=== PATIENT | female | born 1960 | race American Indian/Alaskan Native ===

== ENCOUNTER 2016-09-29 12:06 | Inpatient (IN) | payer MEDICARE ==
[2016-09-29] MEDS ORDERED: HEPARIN 10,000 UNITS/10 ML IV ONE (13:09)
[2016-09-29] MEDS ORDERED: NACL 0.9% 250ML 250 ML IV ONE (13:10)
--- NOTE | 2016-09-29 13:11 | Emergency Department Report ---
ED Shortness of Breath HPI - General Chief Complaint: Dyspnea/Respdistress Stated Complaint: SOB Time Seen by Provider: 09/29/16 13:01 Source: patient, family, RN notes reviewed, old records reviewed Mode of arrival: Wheelchair Limitations: Other (patient is a very poor historian) - History of Present Illness Initial Comments: This is a 56-year-old female. She is previously unknown to me. Her primary care doctor is Dr. Osito Perales. Orthopedic doctors Dr. Conor Fuller. Patient had a left total knee replacement performed on 09/19/2016, at [facility]. Patient reports that she was hospitalized last year for multiple pulmonary emboli. She reports that she was discharged with instructions for Lovenox. Patient reports that she has been poorly compliant with Lovenox therapy. She is sent to the ER for evaluation for possible pulmonary embolus. As per enclosed documentation from her primary care doctor, patient having shortness of breath, with hypoxia, documented O2 sat of 78% as per her enclosed paperwork. The patient complains of shortness of breath. It is constant. It worsens with physical exertion. It decreases with rest. There is no hematemesis. There is no department blood per rectum. There is mild chest tightness. This has been going on for the past few days. Symptoms are constant. Worse with physical exertion. They decrease with rest. case was presented to Dr Millan, the [facility], who accepts the patient to his service MD Complaint: shortness of breath -: Gradual Severity: moderate Consistency: constant Improves With: oxygen, rest Worsens With: lying flat, exertion Known History Of: other Associated Symptoms: chest pain, orhopnia Treatments Prior to Arrival: none - Related Data Home Oxygen Therapy: No Home Medications Medication Instructions Recorded Confirmed Last Taken Meloxicam [Meloxicam] 15 mg PO QDAY 09/04/13 09/29/16 09/28/16 Fluticasone [Flonase] 1 spray NS QDAY 08/12/14 09/29/16 09/10/14 1 Esomeprazole Magnesium [NexIUM] 40 mg PO QDAY 09/29/16 09/29/16 09/28/16 Fluticasone [Flonase] 1 spray NS QDAY 09/29/16 09/29/16 09/28/16 Gabapentin [Neurontin] 800 mg PO Q8H 09/29/16 09/29/16 09/28/16 Lacosamide [Vimpat] 100 mg PO Q12HR 09/29/16 09/29/16 09/28/16 Levocetirizine Dihydrochloride 5 mg PO DAILY 09/29/16 09/29/16 09/28/16 [Xyzal] Paroxetine HCl [Paxil] 30 mg PO DAILY 09/29/16 09/29/16 09/28/16 Quetiapine Fumarate [SEROquel XR] 600 mg PO QHS 09/29/16 09/29/16 09/28/16 Simvastatin [Zocor TAB] 20 mg PO QHS 09/29/16 09/29/16 09/28/16 Tolterodine Tartrate [Tolterodine 4 mg PO DAILY 09/29/16 09/29/16 09/28/16 Tartrate ER] oxyCODONE /ACETAMINOPHEN [Percocet 1 tab PO Q6HR PRN 09/29/16 09/29/16 09/28/16 5/325] valACYclovir [Valtrex] 500 mg PO DAILY 09/29/16 09/29/16 09/28/16 Allergies Allergy/AdvReac Type Severity Reaction Status Date / Time ibuprofen Allergy Nausea Verified 09/29/16 12:14 metronidazole [From Flagyl] Allergy Nausea Verified 09/29/16 12:14 sulfamethoxazole Allergy Nausea Verified 09/29/16 12:14 [From Bactrim] trimethoprim [From Bactrim] Allergy Nausea Verified 09/29/16 12:14 vancomycin Allergy Itching Verified 09/29/16 12:14 ED Review of Systems ROS: Stated complaint: SOB Other details as noted in HPI Constitutional: weakness. denies: fever, malaise Eyes: denies: vision change ENT: denies: epistaxis Respiratory: shortness of breath Cardiovascular: chest pain Gastrointestinal: denies: abdominal pain, hematemesis, melena, hematochezia Genitourinary: as per HPI Musculoskeletal: arthralgia, myalgia, other (patient has chronic pain to her left lower extremity surgical site) Neurological: weakness ED Past Medical Hx - Past Medical History Previous Medical History?: Yes Hx Hypertension: Yes Hx Diabetes: No Hx GERD: Yes Hx Arthritis: Yes Hx Headaches / Migraines: Yes - Surgical History Past Surgical History?: No - Social History Smoking Status: Current Every Day Smoker Substance Use Type: Alcohol - Medications Home Medications: Home Medications Medication Instructions Recorded Confirmed Last Taken Type Meloxicam [Meloxicam] 15 mg PO QDAY 09/04/13 09/29/16 09/28/16 History Fluticasone [Flonase] 1 spray NS QDAY 08/12/14 09/29/16 09/10/14 History 1 Esomeprazole Magnesium [NexIUM] 40 mg PO QDAY 09/29/16 09/29/16 09/28/16 History Fluticasone [Flonase] 1 spray NS QDAY 09/29/16 09/29/16 09/28/16 History Gabapentin [Neurontin] 800 mg PO Q8H 09/29/16 09/29/16 09/28/16 History Lacosamide [Vimpat] 100 mg PO Q12HR 09/29/16 09/29/16 09/28/16 History Levocetirizine Dihydrochloride 5 mg PO DAILY 09/29/16 09/29/16 09/28/16 History [Xyzal] Paroxetine HCl [Paxil] 30 mg PO DAILY 09/29/16 09/29/16 09/28/16 History Quetiapine Fumarate [SEROquel XR] 600 mg PO QHS 09/29/16 09/29/16 09/28/16 History Simvastatin [Zocor TAB] 20 mg PO QHS 09/29/16 09/29/16 09/28/16 History Tolterodine Tartrate [Tolterodine 4 mg PO DAILY 09/29/16 09/29/16 09/28/16 History Tartrate ER] oxyCODONE /ACETAMINOPHEN [Percocet 1 tab PO Q6HR PRN 09/29/16 09/29/16 09/28/16 History 5/325] valACYclovir [Valtrex] 500 mg PO DAILY 09/29/16 09/29/16 09/28/16 History ED Physical Exam - General Limitations: No Limitations General appearance: alert, in no apparent distress - Head Head exam: Present: atraumatic, normocephalic - Eye Eye exam: Present: normal appearance, EOMI. Absent: nystagmus - ENT ENT exam: Present: normal exam, normal orophraynx, mucous membranes moist, normal external ear exam - Neck Neck exam: Present: normal inspection, full ROM. Absent: tenderness, meningismus - Respiratory Respiratory exam: Present: normal lung sounds bilaterally. Absent: respiratory distress, wheezes, rales, rhonchi, stridor, chest wall tenderness - Cardiovascular Cardiovascular Exam: Present: normal rhythm, tachycardia, normal heart sounds. Absent: systolic murmur, diastolic murmur, rubs, gallop - GI/Abdominal GI/Abdominal exam: Present: soft, normal bowel sounds. Absent: distended, tenderness, guarding, rebound, rigid, pulsatile mass - Extremities Exam Extremities exam: Present: normal inspection, normal capillary refill, other ( left lower extremity has a bandage over the surgical site. There is no obvious redness, pus, streaking or swelling). Absent: pedal edema, joint swelling - Back Exam Back exam: Present: normal inspection, full ROM. Absent: tenderness, CVA tenderness (R), CVA tenderness (L), muscle spasm, paraspinal tenderness, vertebral tenderness - Neurological Exam Neurological exam: Present: alert, oriented X3, other (Extraocular movements intact. Tongue midline. No facial droop. Facial sensation intact to light touch in the V1, V2, V3 distribution bilaterally. 5 and 5 strength in 4 extremities.. Sensation is intact to light touch in 4 extremities.). Absent: motor sensory deficit - Psychiatric Psychiatric exam: Present: normal affect, normal mood - Skin Skin exam: Present: warm, dry, intact, normal color. Absent: rash ED Course Vital Signs 09/29/16 09/29/16 09/29/16 12:14 12:30 13:16 Temperature 98.9 F Pulse Rate 99 H Respiratory 14 18 Rate Blood Pressure 115/89 O2 Sat by Pulse 97 98 99 Oximetry 09/29/16 09/29/16 09/29/16 14:05 14:54 15:00 Temperature Pulse Rate 104 H 101 H Respiratory 18 16 20 Rate Blood Pressure 128/90 O2 Sat by Pulse 100 96 Oximetry - Reevaluation(s) Reevaluation #1: 09/29/16 15:27 CAT scan shows large pulmonary embolus. Vascular surgery paged. Discussed the case with physician sales and marketing assistant Noam Hernandez He requests that heparin be held at this time, pending possible catheter directed lysis. Reevaluation #2: 09/29/16 15:34 d/w Dr VILLATORO, who agrees with triage to icu d/w Gigi Hernandez on vascular surgery they recommend that heparin drip be initiated, and that heparin bolus be withheld. ED Medical Decision Making - Lab Data Result diagrams: 09/29/16 13:21 09/29/16 13:21 Vital Signs 09/29/16 09/29/16 12:14 13:16 Temperature 98.9 F Pulse Rate 99 H Respiratory 14 Rate Blood Pressure 115/89 O2 Sat by Pulse 97 99 Oximetry Lab Results 09/29/16 09/29/16 09/29/16 Range/Units 13:21 13:21 13:21 WBC 7.9 (4.5-11.0) K/mm3 RBC 3.74 (3.65-5.03) M/mm3 Hgb 10.3 (10.1-14.3) gm/dl Hct 32.7 (30.3-42.9) % MCV 88 (79-97) fl MCH 28 (28-32) pg MCHC 31 (30-34) % RDW 16.8 H (13.2-15.2) % Plt Count 272 (140-440) K/mm3 Lymph % (Auto) 43.0 H (13.4-35.0) % Kimble % (Auto) 5.5 (0.0-7.3) % Eos % (Auto) 1.2 (0.0-4.3) % Baso % (Auto) 0.6 (0.0-1.8) % Lymph # 3.4 (1.2-5.4) K/mm3 Kimble # 0.4 (0.0-0.8) K/mm3 Eos # 0.1 (0.0-0.4) K/mm3 Baso # 0.0 (0.0-0.1) K/mm3 Seg Neutrophils % 49.7 (40.0-70.0) % Seg Neutrophils # 3.9 (1.8-7.7) K/mm3 PT 14.6 (12.2-14.9) Sec. INR 1.15 H (0.87-1.13) APTT 40.9 H (24.2-36.6) Sec. POC ABG pH (7.35-7.45) POC ABG pCO2 (35-45) POC ABG pO2 (80-105) POC ABG HCO3 POC ABG Total CO2 POC ABG O2 Sat POC ABG Base Excess FiO2 % Sodium 145 (137-145) mmol/L Potassium 3.8 (3.6-5.0) mmol/L Chloride 110.2 H (98-107) mmol/L Carbon Dioxide 18 L (22-30) mmol/L Anion Gap 21 mmol/L BUN 11 (7-17) mg/dL Creatinine 0.8 (0.7-1.2) mg/dL Estimated GFR > 60 ml/min BUN/Creatinine Ratio 13.75 % Glucose 97 (65-100) mg/dL Calcium 8.8 (8.4-10.2) mg/dL Troponin T 0.036 H (0.00-0.029) ng/mL NT-Pro-B Natriuret Pep (0-900) pg/mL 09/29/16 09/29/16 Range/Units 13:21 13:24 WBC (4.5-11.0) K/mm3 RBC (3.65-5.03) M/mm3 Hgb (10.1-14.3) gm/dl Hct (30.3-42.9) % MCV (79-97) fl MCH (28-32) pg MCHC (30-34) % RDW (13.2-15.2) % Plt Count (140-440) K/mm3 Lymph % (Auto) (13.4-35.0) % Kimble % (Auto) (0.0-7.3) % Eos % (Auto) (0.0-4.3) % Baso % (Auto) (0.0-1.8) % Lymph # (1.2-5.4) K/mm3 Kimble # (0.0-0.8) K/mm3 Eos # (0.0-0.4) K/mm3 Baso # (0.0-0.1) K/mm3 Seg Neutrophils % (40.0-70.0) % Seg Neutrophils # (1.8-7.7) K/mm3 PT (12.2-14.9) Sec. INR (0.87-1.13) APTT (24.2-36.6) Sec. POC ABG pH 7.391 (7.35-7.45) POC ABG pCO2 25.4 L (35-45) POC ABG pO2 71 L (80-105) POC ABG HCO3 15.4 POC ABG Total CO2 16 POC ABG O2 Sat 94 POC ABG Base Excess -9 FiO2 21 % Sodium (137-145) mmol/L Potassium (3.6-5.0) mmol/L Chloride (98-107) mmol/L Carbon Dioxide (22-30) mmol/L Anion Gap mmol/L BUN (7-17) mg/dL Creatinine (0.7-1.2) mg/dL Estimated GFR ml/min BUN/Creatinine Ratio % Glucose (65-100) mg/dL Calcium (8.4-10.2) mg/dL Troponin T (0.00-0.029) ng/mL NT-Pro-B Natriuret Pep 4085 H (0-900) pg/mL - EKG Data -: EKG Interpreted by Me Rate: tachycardia - EKG Data 09/29/16 14:44 Sinus tachycardia, 102 beats per minute, incomplete right bundle branch block, abnormal EKG, motion artifact, not morphologically consistent with stemi - Radiology Data Radiology results: pending, report reviewed, image reviewed X-ray the chest is negative. - Medical Decision Making Differential diagnosis: Pneumonia, pulmonary embolus, acute coronary syndrome Assessment and plan: 56-year-old female with shortness of breath and mild chest tightness. She is tachycardic, and her ABG demonstrates hypoxemia, with decreased PaCO2, consistent with noted physical examination tachypnea, and decreased bicarbonate, suggestive of metabolic compensation. High risk by well' s criteria, artery on heparin. Elevated troponin, incomplete right bundle branch block and proBNP noted, suggestive of some massive pulmonary embolus. CT scan of the chest is pending. Patient will require admission. Critical Care Time: Yes Critical care time in (mins) excluding proc time.: 60 Critical care attestation.: If time is entered above; I have spent that time in minutes in the direct care of this critically ill patient, excluding procedure time. Critical Care Time: Critical care time includes multiple bedside evaluations, interpretation of laboratory studies, radiology studies, time spent managing a patient with shortness of breath, elevated troponin, high suspicion for pulmonary embolus, requiring CT scan, initiation of heparin drip, consultation with hospital medicine. This does not include procedure time. ED Disposition Clinical Impression: Dyspnea, Hypoxemia, Elevated troponin Disposition: DC-09 OP ADMIT IP TO THIS HOSP Is pt being admited?: Yes Condition: Good Referrals: PRIMARY CARE, [Primary Care Provider] - 3-5 Days
--- NOTE | 2016-09-29 13:17 | XRay Report ---
Chest 2 views: History: Shortness of breath. Findings: Normal cardiomediastinal silhouette. Trachea is midline. No consolidation, pneumothorax or pleural effusion. Impression: No acute cardiopulmonary findings.
[2016-09-29 13:47] LABS: Basophils % (Auto) 0.6 % (0.0-1.8); Eosinophils % (Auto) 1.2 % (0.0-4.3); Hematocrit 32.7 % (30.3-42.9); Hemoglobin 10.3 gm/dl (10.1-14.3); INR 1.15 (0.87-1.13); Mean Corpuscular HGB Conc 31 % (30-34); Mean Corpuscular Hemoglobin 28 pg (28-32); Mean Corpuscular Volume 88 fl (79-97); Partial Thromboplastin Time 40.9 Sec. (24.2-36.6); Platelet Count 272 K/mm3 (140-440); Red Blood Count 3.74 M/mm3 (3.65-5.03); Red Cell Distribution Width 16.8 % (13.2-15.2); White Blood Count 7.9 K/mm3 (4.5-11.0)
[2016-09-29 13:50] LABS: ISTAT Base Excess -9; ISTAT DEVICE 0; ISTAT HCO3 15.4; ISTAT PCO2 25.4 (35-45); ISTAT PH 7.391 (7.35-7.45); ISTAT PO2 71 (80-105); ISTAT SO2 94; ISTAT TCO2 16
[2016-09-29 13:52] LABS: Anion Gap 21 mmol/L; BUN/Creatinine Ratio 13.75; Blood Urea Nitrogen 11 mg/dL (7-17); Calcium 8.8 mg/dL (8.4-10.2); Carbon Dioxide 18 mmol/L (22-30); Chloride 110.2 mmol/L (98-107); Glucose 97 mg/dL (65-100); Potassium 3.8 mmol/L (3.6-5.0); Sodium 145 mmol/L (137-145)
[2016-09-29] MEDS ORDERED: HEPARIN/ 0.45% NACL-25,000 UNIT/500 ML 25,000 UNIT/500 ML BAG IV SCH (14:00)
[2016-09-29] MEDS ORDERED: SUBLIMAZE IV ONE (14:00)
[2016-09-29] MEDS ORDERED: SUBLIMAZE ONE (14:00)
[2016-09-29] MEDS ORDERED: NACL ONE (14:37)
--- NOTE | 2016-09-29 14:54 | Admit Criteria Form ---
Admission Criteria Documentation: PULMONARY DISEASE GRG Clinical Indications for Admission to Inpatient Care ( Place 'X' for any and all applicable criteria): Hospital admission is needed for appropriate care of the patient because of ANY ONE of the following(1): [ ]I. Impending or actual respiratory arrest ( Use Respiratory Failure Criteria for severe respiratory disease and long-term mechanical ventilation patients) (4) [ ]II. Severe airflow or ventilation abnormalities (not responsive to emergency and observation care treatment as appropriate) as indicated by ANY ONE of the following(5)(6)(7)(8) : [ ]a) PCO2 > 42 mm Hg (5.6 kPa) and pH < 7.35 (new) [ ]b) Documented PCO2 increase > 5 mm Hg (0.7 kPa) from disease baseline [ ]c) Airflow measurements[A] < 60% of previous best or predicted ( e.g., PEF <300 L/minute) despite intensive emergent treatment[B] [ ]d) Required respiratory treatments that are performable only in acute inpatient setting [X]III. Severe respiratory findings (not responsive to emergency and observation care treatment as appropriate) including ANY ONE of the following(5)(8)(9): [X]a) Respiratory distress as indicated by ALL of the following(5)(10): [ ]i) Patient with ANY ONE of the following: [X]1) Dyspnea (difficulty breathing) [ ]2) Abnormal breathing pattern (eg, chest retractions) [ ]3) Tachypnea [ ]4) Other evidence of difficulty breathing [X]ii) Evidence of respiratory compromise indicated by ANY ONE of the following: [X]1) Hypoxemia [ ]2) Altered mental status [ ]3) Other evidence of respiratory compromise (eg, pulmonary edema on chest x-ray) [ ]b) Stridor [ ]c) Gross hemoptysis(11) [ ]d) Acute cyanosis [ ]IV. High-risk pulmonary infection as indicated by ANY ONE of the following( 19)(20)(21)(22): [ ]a) Temperature less than 95 degrees F(35 degrees C) or greater than 103.1 degrees F(39.5 degrees C) [ ]b) Hemodynamic instability that remains after emergency or observation level care (as appropriate) [ ]c) Immunocompromised patient (eg, AIDS, post transplant, neutropenic) [ ]d) History of severe COPD [ ]e) History of severely symptomatic congestive heart failure [ ]f) Other high-risk comorbidity (eg, poorly controlled diabetes, cirrhosis, chronic renal insufficiency) [ ]g) Hypoxemia (new) [ ]h) Outpatient, observation, or recovery facility therapy has failed, is not appropriate, or is not feasible [ ]V. Severe atelectasis or lung collapse(15)(16) [ ]. Tuberculosis requiring inpatient treatment as indicated by ANY ONE of the following(17)(18): [ ]a) New positive acid-fast bacilli sputum smear [ ]b) Positive acid-fast bacilli smear (under current treatment), with ANY ONE of the following: [ ]i) Unexposed household contacts [ ]ii) Infants or immunosuppressed household contacts [ ]iii) Patient unable or unwilling to avoid exposing others [ ]iv) Severe immunocompromised patient (eg, AIDS, post transplant, neutropenic) [ ]VII. Empyema or lung abscess(13)(14) [ ]VIII. Severe pulmonary arterial hypertension or pulmonary vascular disease requiring inpatient care indicated by ANY ONE of the following(24)(25): [ ]a) Initiation or change of vasodilators (IV, subcutaneous, or inhaled) or other vasoactive medications needed [ ]b) IV anticoagulation needed (eg, immediate anticoagulation necessary, alternatives not appropriate) [ ]c) Arterial or pulmonary artery catheter monitoring needed due to infusion or other treatment [ ]IX. Chronic lung disease with severe deterioration (not responsive to emergency and observation care treatment as appropriate) as indicated by ANY ONE of the following (6)(12): [ ]a) SaO2 5% below baseline in patient with chronic hypoxemia [ ]b) New requirement for supplemental oxygen to keep SaO2 at baseline or acceptable level [ ]c) Required supplemental oxygen performable only in acute inpatient setting [ ]d) Severe airflow or ventilation abnormalities [ ]e) Rapid rate of exacerbation onset [ ]f) Previously mobile patient unable to walk between rooms [ ]g) Inability to eat or sleep due to dyspnea [ ]h) Altered mental status [ ]X. Cystic fibrosis with severe deterioration as indicated by ANY ONE of the following(26)(27): [ ]a) Severe exacerbation that does not respond to intensified home therapy [ ]b) Pneumonia [ ]c) Hemoptysis [ ]d) Atelectasis [ ]e) Pneumothorax [ ]f) Respiratory failure [ ]g) Severe exacerbation with patient unable to perform prescribed treatments at home [ ]XI. Severe right heart failure as indicated by ANY ONE of the following(24) (25): [ ]a) Increasing organ failure (eg, liver congestion with significant and worsening or new elevation of transaminases) [ ]b) Anasarca [ ]c) Angina that requires inpatient care (eg, not treatable in emergency or observation level of care) [ ]d) Respiratory distress [ ]e) Syncope [ ]f) SBP < 90 mm Hg (new) [ ]XII. Injury requiring inpatient care (medical) as indicated by ANY ONE of the following(28): [ ]a) Significant inhalation injury (eg, smoke inhalation, other toxic inhalation) (29)(30)(31) [ ]b) Airway obstruction that remains or is unstable after emergency or observation level care(32) [ ]c) Severe pain requiring acute inpatient management [ ]d) Lung contusion [ ]e) Bronchial tree injury [ ]f) Air or fat emboli(33) [ ]g) Other injury not treatable in emergency or observation level care (eg, hemothorax) (34) [ ]XIII. Pulmonary hemorrhage or significant hemoptysis(11)(35)(36) [ ]XIV. Inpatient palliative care needed[C](37)(38)(39)(40) [ ]XV. Complications of lung transplant (eg, rejection, failure, respiratory infection) (23) [ ]XVI. Pulmonary Disease and ANY ONE of the following: [ ]a) General Admission Criteria [ ]b) Pediatric General Admission Criteria The original [email or web address] content created by [facility] has been revised. The portions of the content which have been revised are identified through the use of italic text or in bold, and [facility] has neither reviewed nor approved the modified material. All other unmodified content is copyright [facility]. Please see references footnoted in the original [facility] edition 2016
--- NOTE | 2016-09-29 15:25 | Cat Scan Report ---
CTA chest: History: Shortness of breath. Rule out PE. Findings: No evidence of aortic aneurysm. Multiple filling defects identified at the right and left main pulmonary artery and middle and lower lobe branches bilaterally. Saddle thrombus pulmonary artery. No pleural or pericardial effusion. Bilateral lower lobe infiltrates. No definite evidence of infarction. Impression: Pulmonary thromboembolism as described. Bilateral lower lobe infiltrates. Dr. Sanchez was informed of the findings at 3:18 PM on 09/29/16. Zhang.
[2016-09-29 15:33] LABS: Cholesterol 179 mg/dL (50-199); HDL Cholesterol 49 mg/dL (40-59); LDL Cholesterol,Direct 94 mg/dL (50-130); Triglycerides 182 mg/dL (2-149)
[2016-09-29] MEDS ORDERED: HEPARIN ONE (15:33)
[2016-09-29] MEDS ORDERED: HEPARIN 10,000 UNITS/10 ML ONE ×2 (15:34→17:31)
[2016-09-29] MEDS ORDERED: DUONEB 0.5 MG-3 MG/3 ML SOLN IH PRN (16:35)
[2016-09-29] MEDS ORDERED: DULCOLAX PR PRN (16:35)
[2016-09-29] MEDS ORDERED: MILK OF MAGNESIA PO PRN (16:35)
[2016-09-29] MEDS ORDERED: ALUM-MAG HYDROX-SIMETH 200-200-20MG/5ML PO PRN (16:35)
--- NOTE | 2016-09-29 16:35 | History and Physical Report ---
History of Present Illness Chief complaint: I cant breathe History of present illness: 56 YO Female with HTN, Obesity, GERD, Nicotine Dependence, Migraine RIVERO, DVT/PT Noncompliant with anticoagulation presents to ED for evaluation. Pt states that she has experienced shortness of breath for the past 5 days, with worsening symptoms over the past 3 days. Pt seen and evaluated by PCP and found to have hyposemia with Sao2 of 78/% on room air. Pt instructed to proceed directly to [facility] for evaluation. Pt seen and evaluated in ED and found to be hypoxemic and placed on supplemental oxygen, CTA chest revealed bilateral PE with evidence of RV strain. IR consulted for lytic therpay, and pt admitted to ICU. Pt denies fever, chills, CP, palpitations, hemoptysis, syncope, RIVERO, skin rashes, or recent ill contacts. Past History Past Medical History: DVT, GERD, hypertension, pulmonary embolism Past Surgical History: total knee replacement, Other Social history: single, smoking. denies: alcohol abuse, prescription drug abuse , IV drug use Family history: diabetes, hypertension Medications and Allergies Allergies Allergy/AdvReac Type Severity Reaction Status Date / Time ibuprofen Allergy Nausea Verified 09/29/16 12:14 metronidazole [From Flagyl] Allergy Nausea Verified 09/29/16 12:14 sulfamethoxazole Allergy Nausea Verified 09/29/16 12:14 [From Bactrim] trimethoprim [From Bactrim] Allergy Nausea Verified 09/29/16 12:14 vancomycin Allergy Itching Verified 09/29/16 12:14 Home Medications Medication Instructions Recorded Confirmed Last Taken Type Meloxicam [Meloxicam] 15 mg PO QDAY 09/04/13 09/29/16 09/28/16 History Fluticasone [Flonase] 1 spray NS QDAY 08/12/14 09/29/16 09/10/14 History 1 Esomeprazole Magnesium [NexIUM] 40 mg PO QDAY 09/29/16 09/29/16 09/28/16 History Fluticasone [Flonase] 1 spray NS QDAY 09/29/16 09/29/16 09/28/16 History Gabapentin [Neurontin] 800 mg PO Q8H 09/29/16 09/29/16 09/28/16 History Lacosamide [Vimpat] 100 mg PO Q12HR 09/29/16 09/29/16 09/28/16 History Levocetirizine Dihydrochloride 5 mg PO DAILY 09/29/16 09/29/16 09/28/16 History [Xyzal] Paroxetine HCl [Paxil] 30 mg PO DAILY 09/29/16 09/29/16 09/28/16 History Quetiapine Fumarate [SEROquel XR] 600 mg PO QHS 09/29/16 09/29/16 09/28/16 History Simvastatin [Zocor TAB] 20 mg PO QHS 09/29/16 09/29/16 09/28/16 History Tolterodine Tartrate [Tolterodine 4 mg PO DAILY 09/29/16 09/29/16 09/28/16 History Tartrate ER] oxyCODONE /ACETAMINOPHEN [Percocet 1 tab PO Q6HR PRN 09/29/16 09/29/16 09/28/16 History 5/325] valACYclovir [Valtrex] 500 mg PO DAILY 09/29/16 09/29/16 09/28/16 History Active Meds: Active Medications Heparin Sodium/Sodium Chloride (Heparin/ 0.45% Nacl-25,000 Unit/500 Ml) 25,000 unit in 500 mls @ 23 mls/hr IV TITR ZOHAIB; 1,150 UNITS/HR PRN Reason: Protocol Last Admin: 09/29/16 15:50 Dose: 1,150 units/hr, 23 mls/hr Review of Systems All systems: negative Cardiovascular: shortness of breath Exam - Constitutional Vitals: Temp Pulse Resp BP Pulse Ox 98.9 F 101 H 20 128/90 96 09/29/16 12:14 09/29/16 15:00 09/29/16 15:00 09/29/16 15:00 09/29/16 15:00 General appearance: Present: mild distress, obese - EENT Eyes: Present: PERRL ENT: hearing intact, clear oral mucosa - Neck Neck: Present: supple, normal ROM - Respiratory Respiratory effort: labored, pursed lips, accessory muscle use Respiratory: bilateral: diminished, rhonchi - Cardiovascular Rhythm: regular Heart Sounds: Present: S1 & S2 - Extremities Extremities: pulses symmetrical, No edema - Abdominal General gastrointestinal: Present: soft, non-tender, non-distended, normal bowel sounds Female genitourinary: Present: normal - Integumentary Integumentary: Present: clear, warm, dry - Musculoskeletal Musculoskeletal: generalized weakness - Psychiatric Psychiatric: appropriate mood/affect - Neurologic Neurologic: CNII-XII intact, moves all extremities Results - Labs CBC & Chem 7: 09/30/16 09:48 09/30/16 04:37 Labs: Abnormal lab results 09/29/16 09/29/16 09/29/16 Range/Units 13:21 13:21 13:21 RDW 16.8 H (13.2-15.2) % Lymph % (Auto) 43.0 H (13.4-35.0) % INR 1.15 H (0.87-1.13) APTT 40.9 H (24.2-36.6) Sec. POC ABG pCO2 (35-45) POC ABG pO2 (80-105) Chloride 110.2 H (98-107) mmol/L Carbon Dioxide 18 L (22-30) mmol/L Troponin T 0.036 H (0.00-0.029) ng/mL NT-Pro-B Natriuret Pep (0-900) pg/mL Triglycerides 182 H (2-149) mg/dL 09/29/16 09/29/16 Range/Units 13:21 13:24 RDW (13.2-15.2) % Lymph % (Auto) (13.4-35.0) % INR (0.87-1.13) APTT (24.2-36.6) Sec. POC ABG pCO2 25.4 L (35-45) POC ABG pO2 71 L (80-105) Chloride (98-107) mmol/L Carbon Dioxide (22-30) mmol/L Troponin T (0.00-0.029) ng/mL NT-Pro-B Natriuret Pep 4085 H (0-900) pg/mL Triglycerides (2-149) mg/dL Assessment and Plan - Patient Problems (1) Acute respiratory failure Current Visit: Yes Status: Acute Qualifiers: Respiratory failure complication: R Plan to address problem: Supplemental oxygen, nebs, aspiration precautions, NIPPV, pulmonary consulted. (2) Bilateral pulmonary embolism Current Visit: Yes Status: Acute Plan to address problem: IR consulted, for lytic therapy. (3) Accelerated hypertension Current Visit: Yes Status: Acute Plan to address problem: monitor bp q shift, continue current therapy (4) DVT prophylaxis Current Visit: Yes Status: Acute
[2016-09-29] MEDS ORDERED: PERCOCET 5/325 PO PRN (16:46)
[2016-09-29] MEDS ORDERED: NON-FORMULARY (Gabapentin [Neurontin] 800 MG) PO SCH (17:00)
[2016-09-29] MEDS ORDERED: MORPHINE IV PRN (17:14)
[2016-09-29] MEDS ORDERED: ZOFRAN IV PRN (17:14)
--- NOTE | 2016-09-29 17:19 | Consultation ---
History of Present Illness - Reason for Consult Consult date: 09/29/16 Submassive PE - History of Present Illness 56-year-old female with a left total knee replacement performed on 09/19/2016, at [facility] who is hospitalized in 06/2014 for submassive pulmonary emboli who was then anticoagulated for one year, but never became chronically short of breath with exertion after walking 50-100 feet who one year ago and to smoke and subsequently had a walking distance of 50 feet. 3 days ago, she could only walk about 3 feet before becoming severely short of breath. Patient was discharged on prophylactic Lovenox for 1 week, but missed a few of her shots. She was found by her primary care doctor to have shortness of breath , with hypoxia, documented O2 sat of 78% as per her enclosed paperwork. Patient denies hematemesis, hematochezia, melena, and prior stroke. CT scan demonstrates a right ventricle the left ventricle ratio of approximately 2 (normal is less then 0.9). The main pulmonary arteries approximately 3 cm. There is extensive saddle emboli, bilateral lobar pulmonary emboli, and segmental pulmonary emboli. The patient has positive biomarkers of troponin and BNP. The patient is currently tachycardic, but is not hypoxic while on room air. Minimal movement results in hypoxia. Past History Past Medical History: COPD, pulmonary embolism, other (osteoarthritis) Past Surgical History: total knee replacement (left) Family history: other (noncontributory) Medications and Allergies Allergies Allergy/AdvReac Type Severity Reaction Status Date / Time ibuprofen Allergy Nausea Verified 09/29/16 12:14 metronidazole [From Flagyl] Allergy Nausea Verified 09/29/16 12:14 sulfamethoxazole Allergy Nausea Verified 09/29/16 12:14 [From Bactrim] trimethoprim [From Bactrim] Allergy Nausea Verified 09/29/16 12:14 vancomycin Allergy Itching Verified 09/29/16 12:14 Home Medications Medication Instructions Recorded Confirmed Last Taken Type Meloxicam [Meloxicam] 15 mg PO QDAY 09/04/13 09/29/16 09/28/16 History Fluticasone [Flonase] 1 spray NS QDAY 08/12/14 09/29/16 09/10/14 History 1 Esomeprazole Magnesium [NexIUM] 40 mg PO QDAY 09/29/16 09/29/16 09/28/16 History Fluticasone [Flonase] 1 spray NS QDAY 09/29/16 09/29/16 09/28/16 History Gabapentin [Neurontin] 800 mg PO Q8H 09/29/16 09/29/16 09/28/16 History Lacosamide [Vimpat] 100 mg PO Q12HR 09/29/16 09/29/16 09/28/16 History Levocetirizine Dihydrochloride 5 mg PO DAILY 09/29/16 09/29/16 09/28/16 History [Xyzal] Paroxetine HCl [Paxil] 30 mg PO DAILY 09/29/16 09/29/16 09/28/16 History Quetiapine Fumarate [SEROquel XR] 600 mg PO QHS 09/29/16 09/29/16 09/28/16 History Simvastatin [Zocor TAB] 20 mg PO QHS 09/29/16 09/29/16 09/28/16 History Tolterodine Tartrate [Tolterodine 4 mg PO DAILY 09/29/16 09/29/16 09/28/16 History Tartrate ER] oxyCODONE /ACETAMINOPHEN [Percocet 1 tab PO Q6HR PRN 09/29/16 09/29/16 09/28/16 History 5/325] valACYclovir [Valtrex] 500 mg PO DAILY 09/29/16 09/29/16 09/28/16 History Active Meds: Active Medications Al Hydrox/Mg Hydrox/Simethicone (Alum-Mag Hydrox-Simeth 298-214-95xl/5ml) 30 ml PO Q4H PRN PRN Reason: Indigestion Albuterol/Ipratropium (Duoneb 0.5 Mg-3 Mg/3 Ml Soln) 1 ampul IH Q6HRT PRN PRN Reason: Wheezing Bisacodyl (Dulcolax) 10 mg MO QDAY PRN PRN Reason: constipation unrelieved by MOM Heparin Sodium/Sodium Chloride (Heparin/ 0.45% Nacl-25,000 Unit/500 Ml) 25,000 unit in 500 mls @ 23 mls/hr IV TITR ZOHAIB; 1,150 UNITS/HR PRN Reason: Protocol Last Admin: 09/29/16 15:50 Dose: 1,150 units/hr, 23 mls/hr Lacosamide (Vimpat) 100 mg PO Q12HR ZOHAIB Magnesium Hydroxide (Milk Of Magnesia) 30 ml PO Q4H PRN PRN Reason: Constipation Miscellaneous Medication (Esomeprazole Magnesium [Nexium]) 40 mg PO QDAY [facility] Miscellaneous Medication (Gabapentin [Neurontin]) 800 mg PO Q8H [facility] Miscellaneous Medication (Levocetirizine Dihydrochloride [Xyzal]) 5 mg PO DAILY [facility] Miscellaneous Medication (Meloxicam [Meloxicam]) 15 mg PO QDAY [facility] Miscellaneous Medication (Paroxetine Hcl [Paxil]) 30 mg PO DAILY [facility] Miscellaneous Medication (Quetiapine Fumarate [Seroquel Xr]) 600 mg PO QHS Z[facility] Oxycodone/Acetaminophen (Percocet 5/325) 1 tab PO Q6HR PRN PRN Reason: Pain Oxycodone/Acetaminophen (Percocet 5/325) 1 tab PO Q6H PRN PRN Reason: Pain, Moderate (4-6) Simvastatin (Zocor) 20 mg PO QHS [facility] Tolterodine Tartrate (Detrol La) 4 mg PO DAILY [facility] Valacyclovir HCl (Valtrex) 500 mg PO DAILY [facility] Review of Systems All systems: negative (see history of present illness) Exam - Constitutional Vitals: Temp Pulse Resp BP Pulse Ox 98.9 F 101 H 20 128/90 96 09/29/16 12:14 09/29/16 15:00 09/29/16 15:00 09/29/16 15:00 09/29/16 15:00 General appearance: Present: mild distress - EENT Eyes: Present: EOM intact ENT: hearing intact - Respiratory Respiratory effort: labored, accessory muscle use - Extremities Extremities: normal temperature, normal color, abnormal (left total knee replacement surgical bandages) - Psychiatric Psychiatric: appropriate mood/affect, cooperative Results - Labs CBC & Chem 7: 09/29/16 13:21 09/29/16 13:21 Labs: Abnormal lab results 09/29/16 09/29/16 09/29/16 Range/Units 13:21 13:21 13:21 RDW 16.8 H (13.2-15.2) % Lymph % (Auto) 43.0 H (13.4-35.0) % INR 1.15 H (0.87-1.13) APTT 40.9 H (24.2-36.6) Sec. POC ABG pCO2 (35-45) POC ABG pO2 (80-105) Chloride 110.2 H (98-107) mmol/L Carbon Dioxide 18 L (22-30) mmol/L Troponin T 0.036 H (0.00-0.029) ng/mL NT-Pro-B Natriuret Pep (0-900) pg/mL Triglycerides 182 H (2-149) mg/dL 09/29/16 09/29/16 Range/Units 13:21 13:24 RDW (13.2-15.2) % Lymph % (Auto) (13.4-35.0) % INR (0.87-1.13) APTT (24.2-36.6) Sec. POC ABG pCO2 25.4 L (35-45) POC ABG pO2 71 L (80-105) Chloride (98-107) mmol/L Carbon Dioxide (22-30) mmol/L Troponin T (0.00-0.029) ng/mL NT-Pro-B Natriuret Pep 4085 H (0-900) pg/mL Triglycerides (2-149) mg/dL Assessment and Plan 56-year-old female with multiple medical problems who previously had a sub- massive pulmonary emboli and never regained her prior lung function, and on CT has findings compatible with chronic pulmonary hypertension with positive biomarkers suggestive of superimposed right heart strain with minimal ability to ambulate without hypoxia. I contacted I contacted the orthopedic group which she had her knee replacements from, and spoke to the on-call physician, and discussed the situation with him. Discussed the situation with Dr. Millan who will consult orthopedists in case there is hemarthrosis which would require aspiration or evacuation of the left knee. Discussed the situation with Dr. Whitten, pulmonology, and we both agree that the patient would benefit from thrombolytic catheter placement. I discussed the situation with the patient and explained the risks, benefits, and alternatives, with risks specifically including hemarthrosis/bleeding from her left knee, and cerebral hemorrhage. This was also discussed with the patient's sister who is a nurse. Patient be brought to the [facility] for thrombolytic catheter therapy.
[2016-09-29] MEDS ORDERED: VERSED ONE (17:31)
[2016-09-29] MEDS ORDERED: HEPARIN/NS 5000 UNIT/500ML(CATH LAB) 1,000 ML IR ONE (17:31)
[2016-09-29] MEDS ORDERED: ANCEF/STERILE WATER 2 GM/20 ML 2 GM/20 ML SYRINGE IV ONE (17:32)
[2016-09-29] MEDS ORDERED: NACL 0.9% 250ML 0 ML ONE (17:32)
[2016-09-29] MEDS: SUBLIMAZE ONE ×2 (17:55→18:15)
[2016-09-29] MEDS: XYLOCAINE 2% INFILTRATI ONE ×2 (17:58→18:21)
[2016-09-29] MEDS ORDERED: WATER FOR INJ (PF) 10 ML ONE (17:59)
[2016-09-29] MEDS ORDERED: CATHFLO ONE (17:59)
[2016-09-29] MEDS ORDERED: NACL 0.9% 1000 ML 1,000 ML IV SCH (18:00)
[2016-09-29] MEDS ORDERED: NACL 0.9% 1000 ML 1,000 ML SHEATH SCH ×2 (18:00)
[2016-09-29] MEDS ORDERED: PROVENTIL IH PRN (18:13)
[2016-09-29] MEDS: CATHFLO 10 MG in NACL 0.9% 250ML 250 ML EKOSDLUMEN SCH ×2 (18:26→19:30)
[2016-09-29] MEDS: CATHFLO 10 MG in NACL 0.9% 250ML 250 ML IV SCH ×2 (18:27→19:30)
[2016-09-29] MEDS: HEPARIN/ 0.45% NACL-25,000 UNIT/500 ML 25,000 UNIT/500 ML BAG SHEATH SCH ×4 (18:27→19:30)
[2016-09-29] MEDS: NACL 0.9% 1000 ML 1,000 ML EKOSCLUMEN SCH ×4 (18:28→19:30)
--- NOTE | 2016-09-29 19:38 | Operative Report ---
Operative Report Operative Report: EXAM: 1. Ultrasound guided access of the right common femoral vein 2. Ultrasound guided access of the right common femoral vein 3. Selection of the right atrium, right ventricle, main pulmonary artery, left main pulmonary artery, and left lobar pulmonary artery 4. Left lower lobar pulmonary angiography 5. Selection and angiography of a segmental branch of the left lower lobar pulmonary artery 6. Fluoroscopic guided placement of a 106 cm x 12 cm infusion length EKOS thrombolytic catheter in the left lower lobar segmental pulmonary artery 7. Selection of the right atrium, right ventricle, main pulmonary artery, and right main pulmonary artery. 8. Right main pulmonary angiography 9. Selection of the right interlobar pulmonary artery and a segmental branch of the right lower lobar pulmonary artery 10. Angiography of a segmental branch of the right lower lobar pulmonary artery 11. Fluoroscopic guided placement of a 106 cm x 12 cm infusion length EKOS thrombolytic catheter in the right lower lobar segmental pulmonary artery DATE: 09/29/16 CIRCULAR TANK COOPER: DAVE SAWYER MD INDICATION: 56-year-old female with CT findings and history compatible with chronic pulmonary hypertension with acute on chronic worsening and sup massive pulmonary emboli with saddle embolism, and bilateral lobar and segmental pulmonary emboli with biomarkers positive for heart strain. Patient has left total knee replacement performed 10 days ago. MEDICATIONS: Continuous cardiopulmonary monitoring was performed during this procedure. Please see nursing report for full details. DEVICES: 12 cm x 106 cm EKOS catheter placement in the left lower lobe segmental pulmonary artery 12 cm x 106 cm EKOS catheter placement in the right lower lobe segmental pulmonary artery CONTRAST: Please see nursing report. PROCEDURE: The risks, benefits, and alternatives were discussed; written informed consent was obtained. The patient was prepped and draped in a sterile fashion and both groins were prepped and draped in a sterile fashion. The right common femoral vein was patent on ultrasound evaluation. The right common femoral vein was assessed under ultrasound guidance, and a 21- gauge micropuncture needle was advanced into the right common femoral vein. 0.018 inch wire was advanced into the needle and into the inferior vena cava. Needle was exchanged for micropuncture transitional dilator. The right common femoral vein was assessed again under ultrasound guidance, and a 21-gauge micropuncture needle was advanced into the right common femoral vein. 0.018 inch wire was advanced into the needle and into the inferior vena cava. Needle was exchanged for micropuncture transitional dilator. Both access sites were then exchanged for 6 Romansh sheaths after 0.035 wire were passed into the inferior vena cava. Through the first right-sided sheath, a JR4 catheter was advanced over the Bentson wire and was used to successfully cannulated the right atrium. Then the catheter was used to select the right ventricle. Catheter was then used to select the main pulmonary artery. The catheter was then used to select the left main pulmonary artery and the left lower lobe lobar pulmonary artery. Digital angiography was performed demonstrating a nearly occlusive thrombus in the left lower lobar pulmonary artery extending into segmental branches. The catheter was then used to select the left lower lobe segmental and subsegmental branches. Digital angiography was performed confirming placement in a segmental branch of the left lower lobar pulmonary artery. Yeung wire was advanced into the vessel and catheter was exchanged for a 6 Romansh EKOS thrombolytic catheter. Wire was then exchanged for the EKOS wire. Contrast was injected to the thrombolytic catheter confirming placement in a segmental branch of the left lower lobe pulmonary artery. Thrombolytic catheter was flushed with saline. EKOS catheter was primed with 1 mg of TPA. This sheath was flushed and then primed with 1000 units of heparin. Through the second right-sided sheath, a vertebral catheter was advanced over the Bentson wire and was used to successfully cannulated the right atrium. Then the catheter was used to select the right ventricle. Catheter was then used to select the main pulmonary artery. The catheter was then used to select the right main pulmonary artery and then the right interlobar pulmonary artery. Digital angiography was performed demonstrating a large near occlusive thrombus in the right distal main extending into lobar branches. The catheter was then used to select the right lower lobe lobar branch and then a segmental and subsegmental branches. Digital angiography was performed confirming placement in a segmental branch of the right lower lobar pulmonary artery. Yeung wire was advanced into the vessel and catheter was exchanged for a 6 Romansh EKOS thrombolytic catheter. Wire was then exchanged for the EKOS wire. Contrast was injected to the thrombolytic catheter confirming placement in a segmental branch of the left lower lobe pulmonary artery. Thrombolytic catheter was flushed with saline. EKOS catheter was primed with 1 mg of TPA. This sheath was flushed and then primed with 1000 units of heparin. EKOS catheters were secured in 2-0 Ethilon sutures were used to secure this sheath. Steri-Strips were used to connect the catheters with the sheaths. The EKOS catheters were secured in a sterile fashion with multiple Tegaderms and 4 x 4's. FINDINGS: 1. Please see procedure note above IMPRESSION: Successful pulmonary angiograms and pulmonary artery selections for thrombolytic therapy. Successful placement of EKOS catheters in the right lower lobe segmental/ subsegmental pulmonary artery and left lower lobe segmental/subsegmental pulmonary artery. Given risk factors of [employer] shunt placement 6 months ago and left total knee arthroplasty 10 days ago, I will proceed with 500 units of heparin/hr and only 0.5 mg of tPA per hour to decrease the risk of any bleeding complications.
[2016-09-29 20:20] LABS: Basophils % (Auto) 0.9 % (0.0-1.8); Eosinophils % (Auto) 1.9 % (0.0-4.3); Hematocrit 29.1 % (30.3-42.9); Mean Corpuscular HGB Conc 31 % (30-34); Mean Corpuscular Hemoglobin 28 pg (28-32); Mean Corpuscular Volume 89 fl (79-97); Platelet Count 224 K/mm3 (140-440); Red Blood Count 3.25 M/mm3 (3.65-5.03); White Blood Count 8.6 K/mm3 (4.5-11.0)
[2016-09-29 20:29] LABS: INR 1.09 (0.87-1.13)
[2016-09-29 20:31] LABS: Partial Thromboplastin Time 52.8 Sec. (24.2-36.6)
[2016-09-29 20:32] LABS: BUN/Creatinine Ratio 12.85; Blood Urea Nitrogen 9 mg/dL (7-17); Calcium 7.5 mg/dL (8.4-10.2); Chloride 107.6 mmol/L (98-107); Glucose 96 mg/dL (65-100)
[2016-09-29] MEDS: NORCO 5/325 PO PRN (20:37)
[2016-09-29 21:24] LABS: Potassium TNR mmol/L (3.6-5.0); Sodium TNR mmol/L (137-145)
[2016-09-29 21:25] LABS: Anion Gap TNR mmol/L; Carbon Dioxide TNR mmol/L (22-30)
[2016-09-29] MEDS ORDERED: QUETIAPINE FUMARATE 600 MG PO SCH (22:00)
[2016-09-29] MEDS: NEURONTIN PO SCH ×2 (22:10)
[2016-09-29] MEDS: ZOCOR PO SCH (22:10)
[2016-09-29] MEDS: VIMPAT PO SCH (22:12)
[2016-09-29 22:49] LABS: Basophils % (Auto) 0.4 % (0.0-1.8); Eosinophils % (Auto) 1.7 % (0.0-4.3); Hematocrit 30.9 % (30.3-42.9); Hemoglobin 9.7 gm/dl (10.1-14.3); Mean Corpuscular HGB Conc 32 % (30-34); Mean Corpuscular Hemoglobin 27 pg (28-32); Mean Corpuscular Volume 87 fl (79-97); Platelet Count 251 K/mm3 (140-440); Red Blood Count 3.55 M/mm3 (3.65-5.03); Red Cell Distribution Width 16.3 % (13.2-15.2); White Blood Count 8.5 K/mm3 (4.5-11.0)
[2016-09-30] MEDS: MORPHINE IV PRN ×4 (00:48→20:38)
--- NOTE | 2016-09-30 04:29 | Consultation ---
History of Present Illness Consult date: 09/30/16 Requesting physician: INGRIS DELGADO Reason for consult: hypoxemia, pulmonary embolism, pulmonary hypertension History of present illness: 56-year-old female with recent left total knee replacement performed on 2016, at [facility] who has been essentially immobile since surgery presents to the hospital with worsening dyspnea on exertion and decrease exercise tolerance. Per chart, patient had PE in 2014 and was anticoagulated for at least one year. Unsure of further follow up. She was currently not on anticoagulation prior to surgery at [facility]. Patient was discharge on lovenox, but per report missed a few doses. CT scan here shows bilateral clots to PA's with saddle embolus. Vascular consulted and they agree that patient would be an EKOS candidate. Taken to the lab and now admitted to ICU for further follow up. Past History Past Medical History: COPD, pulmonary embolism, other (osteoarthritis) Past Surgical History: total knee replacement (left) Family history: other (noncontributory) Medications and Allergies Allergies Allergy/AdvReac Type Severity Reaction Status Date / Time ibuprofen Allergy Nausea Verified 09/29/16 12:14 metronidazole [From Flagyl] Allergy Nausea Verified 09/29/16 12:14 sulfamethoxazole Allergy Nausea Verified 09/29/16 12:14 [From Bactrim] trimethoprim [From Bactrim] Allergy Nausea Verified 09/29/16 12:14 vancomycin Allergy Itching Verified 09/29/16 12:14 Home Medications Medication Instructions Recorded Confirmed Last Taken Type Meloxicam [Meloxicam] 15 mg PO QDAY 09/04/13 09/29/16 09/28/16 History Fluticasone [Flonase] 1 spray NS QDAY 08/12/14 09/29/16 09/10/14 History 1 Esomeprazole Magnesium [NexIUM] 40 mg PO QDAY 09/29/16 09/29/16 09/28/16 History Fluticasone [Flonase] 1 spray NS QDAY 09/29/16 09/29/16 09/28/16 History Gabapentin [Neurontin] 800 mg PO Q8H 09/29/16 09/29/16 09/28/16 History Lacosamide [Vimpat] 100 mg PO Q12HR 09/29/16 09/29/16 09/28/16 History Levocetirizine Dihydrochloride 5 mg PO DAILY 09/29/16 09/29/16 09/28/16 History [Xyzal] Paroxetine HCl [Paxil] 30 mg PO DAILY 09/29/16 09/29/16 09/28/16 History Quetiapine Fumarate [SEROquel XR] 600 mg PO QHS 09/29/16 09/29/16 09/28/16 History Simvastatin [Zocor TAB] 20 mg PO QHS 09/29/16 09/29/16 09/28/16 History Tolterodine Tartrate [Tolterodine 4 mg PO DAILY 09/29/16 09/29/16 09/28/16 History Tartrate ER] oxyCODONE /ACETAMINOPHEN [Percocet 1 tab PO Q6HR PRN 09/29/16 09/29/16 09/28/16 History 5/325] valACYclovir [Valtrex] 500 mg PO DAILY 09/29/16 09/29/16 09/28/16 History Active Meds: Active Medications Acetaminophen/Hydrocodone Bitart ([place] 5/325) 2 each PO Q6H PRN PRN Reason: Pain, Moderate (4-6) Last Admin: 09/29/16 20:37 Dose: 2 each Al Hydrox/Mg Hydrox/Simethicone (Alum-Mag Hydrox-Simeth [phone]/5ml) 30 ml PO Q4H PRN PRN Reason: Indigestion Albuterol (Proventil) 2.5 mg IH Q4HRT PRN PRN Reason: Shortness Of Breath Bisacodyl (Dulcolax) 10 mg [place] QDAY PRN PRN Reason: constipation unrelieved by MOM Gabapentin (Neurontin) 800 mg PO Q8HR ZOHAIB Last Admin: 09/29/16 22:10 Dose: 800 mg Alteplase, Recombinant 10 mg/ (Sodium Chloride) 250 mls @ 5 mls/hr EKOSDLUMEN DIRECT ZOHAIB Last Admin: 09/29/16 19:30 Dose: 250 mls Alteplase, Recombinant 10 mg/ (Sodium Chloride) 250 mls @ 5 mls/hr IV DIRECT ZOHAIB Last Admin: 09/29/16 19:30 Dose: 250 mls Heparin Sodium/Sodium Chloride (Heparin/ 0.45% Nacl-25,000 Unit/500 Ml) 25,000 unit in 500 mls @ 5 mls/hr SHEATH DIRECT ZOHAIB; 250 UNITS/HR PRN Reason: Protocol Last Admin: 09/29/16 19:30 Dose: 500 mls Heparin Sodium/Sodium Chloride (Heparin/ 0.45% Nacl-25,000 Unit/500 Ml) 25,000 unit in 500 mls @ 5 mls/hr SHEATH DIRECT ZOHAIB; 250 UNITS/HR PRN Reason: Protocol Last Admin: 09/29/16 19:30 Dose: 500 mls Sodium Chloride (Nacl 0.9% 1000 Ml) 1,000 mls @ 30 mls/hr IV DIRECT ZOHAIB Sodium Chloride (Nacl 0.9% 1000 Ml) 1,000 mls @ 30 mls/hr SHEATH DIRECT ZOHAIB Sodium Chloride (Nacl 0.9% 1000 Ml) 1,000 mls @ 35 mls/hr EKOSCLUMEN DIRECT ZOHAIB Last Admin: 09/29/16 19:30 Dose: 1,000 mls Sodium Chloride (Nacl 0.9% 1000 Ml) 1,000 mls @ 30 mls/hr SHEATH DIRECT ZOHAIB Sodium Chloride (Nacl 0.9% 1000 Ml) 1,000 mls @ 35 mls/hr EKOSCLUMEN DIRECT ZOHAIB Last Admin: 09/29/16 19:30 Dose: 1,000 mls Lacosamide (Vimpat) 100 mg PO Q12HR ZOHAIB Last Admin: 09/29/16 22:12 Dose: 100 mg Magnesium Hydroxide (Milk Of Magnesia) 30 ml PO Q4H PRN PRN Reason: Constipation Meloxicam (Mobic) 15 mg PO QDAY [facility] Miscellaneous Medication (Levocetirizine Dihydrochloride [Xyzal]) 5 mg PO DAILY [facility] Miscellaneous Medication (Quetiapine Fumarate [Seroquel Xr]) 600 mg PO QHS ZOHAIB Morphine Sulfate (Morphine) 2 mg IV Q4H PRN PRN Reason: Pain, Moderate (4-6) Last Admin: 09/29/16 22:08 Dose: 2 mg Morphine Sulfate (Morphine) 4 mg IV Q4H PRN PRN Reason: Pain , Severe (7-10) Last Admin: 09/30/16 00:48 Dose: 4 mg Ondansetron HCl (Zofran) 4 mg IV Q8H PRN PRN Reason: Nausea And Vomiting Oxycodone/Acetaminophen (Percocet 5/325) 1 tab PO Q6H PRN PRN Reason: Pain, Moderate (4-6) Pantoprazole Sodium (Protonix) 40 mg PO DAILY [facility] Paroxetine HCl (Paxil) 30 mg PO DAILY [facility] Simvastatin (Zocor) 20 mg PO QHS [facility] Last Admin: 09/29/16 22:10 Dose: 20 mg Tolterodine Tartrate (Detrol La) 4 mg PO DAILY [facility] Valacyclovir HCl (Valtrex) 500 mg PO DAILY [facility] Review of Systems All systems: negative Physical Examination Vital signs: Vital Signs Temp Pulse Resp BP Pulse Ox 98.9 F 99 H 14 115/89 97 09/29/16 12:14 09/29/16 12:14 09/29/16 12:14 09/29/16 12:14 09/29/16 12:14 General appearance: no acute distress, asleep, other (lying flat with good O2 sats) ENT: oropharynx moist Neck: supple Effort: normal Ascultation: Bilateral: diminished breath sounds Percussion: Bilateral: not dull Cardiovascular: regular rate and rhythm Gastrointestinal: normoactive bowel sounds, soft Results - Laboratory Findings CBC and BMP: 09/29/16 21:58 09/29/16 17:14 ABG POC ABG pH 7.391 (7.35-7.45) 09/29/16 13:24 POC ABG pCO2 25.4 (35-45) L 09/29/16 13:24 POC ABG pO2 71 (80-105) L 09/29/16 13:24 POC ABG HCO3 15.4 09/29/16 13:24 POC ABG Total CO2 16 09/29/16 13:24 POC ABG O2 Sat 94 09/29/16 13:24 PT/INR, D-dimer PT 14.7 Sec. (12.2-14.9) 09/29/16 17:14 INR 1.09 (0.87-1.13) 09/29/16 17:14 Abnormal lab findings: Abnormal Labs 09/29/16 09/29/16 09/29/16 17:14 17:14 17:14 RBC 3.25 L Hgb 9.0 L Hct 29.1 L MCH RDW 17.0 H Lymph % (Auto) 44.9 H APTT 52.8 H Fibrinogen 557 H Chloride 107.6 H Calcium 7.5 L 09/29/16 09/29/16 21:58 21:58 RBC 3.55 L Hgb 9.7 L Hct MCH 27 L RDW 16.3 H Lymph % (Auto) 48.6 H APTT Fibrinogen 550 H Chloride Calcium - Diagnostic Findings CT scan - chest: image reviewed (As stated in HPI) Assessment and Plan 56 y/o female with acute pulmonary emboli status post EKOS therapy. 1. Heparin infusion per Vascular 2. Hopeful catheter removal later today 3. If hemodynamics are stable and no evidence for bleeding or any other complications, may be stable for transfer out of unit. CCT 31 minutes
[2016-09-30 05:35] LABS: Basophils % (Auto) 0.8 % (0.0-1.8); Eosinophils % (Auto) 1.3 % (0.0-4.3); Mean Corpuscular HGB Conc 30 % (30-34); Mean Corpuscular Hemoglobin 28 pg (28-32); Red Blood Count 3.55 M/mm3 (3.65-5.03); Red Cell Distribution Width 17.8 % (13.2-15.2); White Blood Count 6.8 K/mm3 (4.5-11.0)
[2016-09-30 05:41] LABS: Fibrinogen 506 mg/dl (211-480)
[2016-09-30 05:42] LABS: Hemoglobin 9.8 gm/dl (10.1-14.3)
[2016-09-30 05:43] LABS: Hematocrit 32.6 % (30.3-42.9); Mean Corpuscular Volume 89 fl (79-97)
[2016-09-30 05:45] LABS: BUN/Creatinine Ratio 12.85; Blood Urea Nitrogen 9 mg/dL (7-17); Calcium 8.2 mg/dL (8.4-10.2); Carbon Dioxide 11 mmol/L (22-30); Chloride 112.5 mmol/L (98-107); Glucose 96 mg/dL (65-100); Potassium 3.7 mmol/L (3.6-5.0); Sodium 140 mmol/L (137-145)
[2016-09-30 05:46] LABS: Anion Gap 20 mmol/L
[2016-09-30 05:54] LABS: Platelet Count 200 K/mm3 (140-440)
[2016-09-30] MEDS ORDERED: NON-FORMULARY (Esomeprazole Magnesium [Nexium] 40 MG) PO SCH (10:00)
[2016-09-30] MEDS ORDERED: NON-FORMULARY (Paroxetine Hcl [Paxil] 30 MG) PO SCH (10:00)
[2016-09-30] MEDS ORDERED: NON-FORMULARY (Meloxicam [Meloxicam] 15 MG) PO SCH (10:00)
[2016-09-30] MEDS ORDERED: NON-FORMULARY (Levocetirizine Dihydrochloride [Xyzal] 5 MG) PO SCH (10:00)
[2016-09-30 10:05] LABS: Basophils % (Auto) 0.7 % (0.0-1.8); Eosinophils % (Auto) 1.5 % (0.0-4.3); Hematocrit 31.5 % (30.3-42.9); Mean Corpuscular HGB Conc 32 % (30-34); Mean Corpuscular Hemoglobin 28 pg (28-32); Mean Corpuscular Volume 88 fl (79-97); Platelet Count 238 K/mm3 (140-440); Red Blood Count 3.58 M/mm3 (3.65-5.03); Red Cell Distribution Width 16.5 % (13.2-15.2); White Blood Count 8.8 K/mm3 (4.5-11.0)
[2016-09-30 10:14] LABS: Fibrinogen 538 mg/dl (211-480)
--- NOTE | 2016-09-30 10:18 | Progress Note ---
Assessment and Plan Assessment and plan: Submassive pulmonary emboli with right heart strain. Patient status post EKOS. Vascular surgery following. Continue anticoagulation. Acute hypoxic respiratory failure. Continue per pulmonary. Pulmonary hypertension. s/p TKR. Observe for hemarthrosis given the anticoagulation/thrombolytic therapy/EKOS and consult orthopedic surgery as needed. History Interval history: 56-year-old female with recent left total knee replacement performed on 2016, at [facility] who has been essentially immobile since surgery presents to the hospital with worsening dyspnea on exertion and decrease exercise tolerance. Per chart, patient had PE in 2015 and was anticoagulated for at least one year. Unsure of further follow up. She was currently not on anticoagulation prior to [place] [facility] Patient was discharge on lovenox, but per report missed a few doses. CT scan here shows bilateral clots to PA's with saddle embolus. Vascular surgery initiated EKOS. Hospitalist Physical - Constitutional Vitals: Temp Pulse Resp BP Pulse Ox 99 F 96 H 18 118/94 98 09/30/16 04:11 09/30/16 06:51 09/30/16 06:51 09/30/16 06:51 09/30/16 06:51 General appearance: Present: no acute distress - EENT Eyes: Present: PERRL, EOM intact ENT: hearing intact, clear oral mucosa, dentition normal - Neck Neck: Present: supple, normal ROM - Respiratory Respiratory effort: normal Respiratory: bilateral: CTA - Cardiovascular Rhythm: regular Heart Sounds: Present: S1 & S2. Absent: gallop, rub - Extremities Extremities: no ischemia, No edema, Full ROM - Abdominal General gastrointestinal: soft, non-tender, non-distended, normal bowel sounds - Integumentary Integumentary: Present: clear, warm, dry - Neurologic Neurologic: CNII-XII intact, moves all extremities Results - Labs CBC & Chem 7: 09/30/16 09:48 09/30/16 04:37 Labs: Laboratory Last Values WBC 8.8 K/mm3 (4.5-11.0) 09/30/16 09:48 RBC 3.58 M/mm3 (3.65-5.03) L 09/30/16 09:48 Hgb 10.0 gm/dl (10.1-14.3) L 09/30/16 09:48 Hct 31.5 % (30.3-42.9) 09/30/16 09:48 MCV 88 fl (79-97) 09/30/16 09:48 MCH 28 pg (28-32) 09/30/16 09:48 MCHC 32 % (30-34) 09/30/16 09:48 RDW 16.5 % (13.2-15.2) H 09/30/16 09:48 Plt Count 238 K/mm3 (140-440) 09/30/16 09:48 Lymph % (Auto) 35.9 % (13.4-35.0) H 09/30/16 09:48 [place] % (Auto) 6.0 % (0.0-7.3) 09/30/16 09:48 Eos % (Auto) 1.5 % (0.0-4.3) 09/30/16 09:48 Baso % (Auto) 0.7 % (0.0-1.8) 09/30/16 09:48 Lymph # 3.1 K/mm3 (1.2-5.4) 09/30/16 09:48 [place] # 0.5 K/mm3 (0.0-0.8) 09/30/16 09:48 Eos # 0.1 K/mm3 (0.0-0.4) 09/30/16 09:48 Baso # 0.1 K/mm3 (0.0-0.1) 09/30/16 09:48 Seg Neutrophils % 55.9 % (40.0-70.0) 09/30/16 09:48 Seg Neutrophils # 4.9 K/mm3 (1.8-7.7) 09/30/16 09:48 PT 14.7 Sec. (12.2-14.9) 09/29/16 17:14 INR 1.09 (0.87-1.13) 09/29/16 17:14 APTT 52.8 Sec. (24.2-36.6) H 09/29/16 17:14 Fibrinogen 506 mg/dl (211-480) H 09/30/16 04:37 Heparin Anti-Xa Level < 0.10 U.I./ml (0.3-0.7) L 09/30/16 04:37 POC ABG pH 7.391 (7.35-7.45) 09/29/16 13:24 POC ABG pCO2 25.4 (35-45) L 09/29/16 13:24 POC ABG pO2 71 (80-105) L 09/29/16 13:24 POC ABG HCO3 15.4 09/29/16 13:24 POC ABG Total CO2 16 09/29/16 13:24 POC ABG O2 Sat 94 09/29/16 13:24 POC ABG Base Excess -9 09/29/16 13:24 FiO2 21 % 09/29/16 13:24 Sodium 140 mmol/L (137-145) 09/30/16 04:37 Potassium 3.7 mmol/L (3.6-5.0) 09/30/16 04:37 Chloride 112.5 mmol/L (98-107) H 09/30/16 04:37 Carbon Dioxide 11 mmol/L (22-30) L D 09/30/16 04:37 Anion Gap 20 mmol/L 09/30/16 04:37 BUN 9 mg/dL (7-17) 09/30/16 04:37 Creatinine 0.7 mg/dL (0.7-1.2) 09/30/16 04:37 Estimated GFR > 60 ml/min 09/30/16 04:37 BUN/Creatinine Ratio 12.85 % 09/30/16 04:37 Glucose 96 mg/dL (65-100) 09/30/16 04:37 Calcium 8.2 mg/dL (8.4-10.2) L 09/30/16 04:37 Troponin T 0.036 ng/mL (0.00-0.029) H 09/29/16 13:21 NT-Pro-B Natriuret Pep 4085 pg/mL (0-900) H 09/29/16 13:21 Triglycerides 182 mg/dL (2-149) H 09/29/16 13:21 Cholesterol 179 mg/dL (50-199) 09/29/16 13:21 LDL Cholesterol Direct 94 mg/dL (50-130) 09/29/16 13:21 HDL Cholesterol 49 mg/dL (40-59) 09/29/16 13:21 Cholesterol/HDL Ratio 3.65 % 09/29/16 13:21 Blood Type O NEGATIVE 09/29/16 22:04 Antibody Screen TNR 09/29/16 22:04 TONY Antibody Screen Negative 09/29/16 22:04
--- NOTE | 2016-09-30 12:19 | Progress Note ---
Assessment and Plan 56-year-old female with multiple medical problems who previously had a sub- massive pulmonary emboli and never regained her prior lung function, and on CT has findings compatible with chronic pulmonary hypertension with positive biomarkers suggestive of superimposed right heart strain with minimal ability to ambulate without hypoxia. Had [employer] shunt 6 months ago and left TKA 10 days ago. Used low dose thrombolytics. Tolerated without issue. EKOS catheters removed at bedside. Nurses will remove groin sheaths 1 hr after EKOS catheter removal. Then will apply pressure dressing and start IV heparin drip. Flat for 4 hrs after sheath removal. Patient tolerated procedure without issue. Left knee feels "better" per patient without any obvious signs of hemarthrosis. A&O x 3 without any signs of ICH. Subjective Date of service: 09/30/16 Interval history: Doing well. A&O x3. Feels better. Breathing better. No groin hematoma. Left knee feels "better than yesterday". No bruising around left knee. No ecchymosis. EKOS catheters removed at bedside. Objective - Constitutional Vitals: Vital Signs - 12hr 09/30/16 09/30/16 09/30/16 00:20 00:30 00:33 Temperature 98.6 F Pulse Rate 102 H 105 H Respiratory 21 19 Rate Blood Pressure 144/105 144/105 O2 Sat by Pulse 95 98 Oximetry 09/30/16 09/30/16 09/30/16 00:40 00:48 00:50 Temperature Pulse Rate 105 H 104 H Respiratory 21 17 15 Rate Blood Pressure 126/93 127/103 O2 Sat by Pulse 97 97 Oximetry 09/30/16 09/30/16 09/30/16 01:00 01:11 01:21 Temperature Pulse Rate 106 H 106 H 104 H Respiratory 13 13 21 Rate Blood Pressure 127/103 127/102 133/100 O2 Sat by Pulse 97 98 96 Oximetry 09/30/16 09/30/16 09/30/16 01:30 01:41 01:51 Temperature Pulse Rate 102 H 100 H 100 H Respiratory 15 14 11 L Rate Blood Pressure 143/97 143/97 120/98 O2 Sat by Pulse 94 94 94 Oximetry 09/30/16 09/30/16 09/30/16 02:00 02:11 02:21 Temperature Pulse Rate 101 H 101 H 102 H Respiratory 13 14 15 Rate Blood Pressure 138/108 138/108 133/100 O2 Sat by Pulse 96 95 95 Oximetry 09/30/16 09/30/16 09/30/16 02:30 02:41 02:51 Temperature Pulse Rate 101 H 101 H 99 H Respiratory 14 14 16 Rate Blood Pressure 129/99 129/99 138/105 O2 Sat by Pulse 95 95 95 Oximetry 09/30/16 09/30/16 09/30/16 03:00 03:11 03:21 Temperature Pulse Rate 96 H 96 H 101 H Respiratory 13 19 14 Rate Blood Pressure 142/97 142/97 123/87 O2 Sat by Pulse 95 98 97 Oximetry 09/30/16 09/30/16 09/30/16 03:30 03:41 03:51 Temperature Pulse Rate 99 H 100 H 100 H Respiratory 14 16 16 Rate Blood Pressure 133/95 133/95 126/102 O2 Sat by Pulse 96 96 97 Oximetry 09/30/16 09/30/16 09/30/16 04:00 04:11 04:21 Temperature 99 F Pulse Rate 98 H 102 H 99 H Respiratory 10 L 22 12 Rate Blood Pressure 125/95 125/95 133/95 O2 Sat by Pulse 98 95 96 Oximetry 09/30/16 09/30/16 09/30/16 04:30 04:40 04:50 Temperature Pulse Rate 98 H 102 H 98 H Respiratory 15 15 10 L Rate Blood Pressure 135/101 135/101 128/98 O2 Sat by Pulse 95 97 98 Oximetry 09/30/16 09/30/16 09/30/16 05:00 05:11 05:21 Temperature Pulse Rate 99 H 99 H 100 H Respiratory 18 15 19 Rate Blood Pressure 145/108 145/108 145/108 O2 Sat by Pulse 90 96 91 Oximetry 09/30/16 09/30/16 09/30/16 05:30 05:41 05:51 Temperature Pulse Rate 98 H 97 H 97 H Respiratory 12 19 10 L Rate Blood Pressure 138/96 138/96 126/97 O2 Sat by Pulse 99 98 98 Oximetry 09/30/16 09/30/16 09/30/16 06:00 06:11 06:21 Temperature Pulse Rate 98 H 94 H 99 H Respiratory 18 21 17 Rate Blood Pressure 118/93 118/93 118/93 O2 Sat by Pulse 98 97 92 Oximetry 09/30/16 09/30/16 09/30/16 06:30 06:41 06:51 Temperature Pulse Rate 95 H 97 H 96 H Respiratory 14 15 18 Rate Blood Pressure 125/88 125/88 118/94 O2 Sat by Pulse 97 91 98 Oximetry 09/30/16 08:00 Temperature 98.4 F Pulse Rate Respiratory Rate Blood Pressure O2 Sat by Pulse 100 Oximetry General appearance: Present: no acute distress - EENT Eyes: EOM intact ENT: hearing intact - Respiratory Respiratory effort: normal Extremities: normal temperature, normal color, abnormal (surgical changes from left TKA ; right groin EKOS catheters) - Psychiatric Psychiatric: appropriate mood/affect, cooperative - Labs CBC & Chem 7: 09/30/16 09:48 09/30/16 04:37 Labs: Abnormal lab results 09/29/16 09/29/16 09/29/16 Range/Units 17:14 17:14 17:14 RBC 3.25 L (3.65-5.03) M/mm3 Hgb 9.0 L (10.1-14.3) gm/dl Hct 29.1 L (30.3-42.9) % MCH (28-32) pg RDW 17.0 H (13.2-15.2) % Lymph % (Auto) 44.9 H (13.4-35.0) % APTT 52.8 H (24.2-36.6) Sec. Fibrinogen 557 H (211-480) mg/dl Heparin Anti-Xa Level (0.3-0.7) U.I./ml Chloride 107.6 H (98-107) mmol/L Carbon Dioxide (22-30) mmol/L Calcium 7.5 L (8.4-10.2) mg/dL 09/29/16 09/29/16 09/30/16 Range/Units 21:58 21:58 04:37 RBC 3.55 L (3.65-5.03) M/mm3 Hgb 9.7 L (10.1-14.3) gm/dl Hct (30.3-42.9) % MCH 27 L (28-32) pg RDW 16.3 H (13.2-15.2) % Lymph % (Auto) 48.6 H (13.4-35.0) % APTT (24.2-36.6) Sec. Fibrinogen 550 H (211-480) mg/dl Heparin Anti-Xa Level (0.3-0.7) U.I./ml Chloride 112.5 H (98-107) mmol/L Carbon Dioxide 11 L D (22-30) mmol/L Calcium 8.2 L (8.4-10.2) mg/dL 09/30/16 09/30/16 09/30/16 Range/Units 04:37 04:37 09:48 RBC 3.55 L 3.58 L (3.65-5.03) M/mm3 Hgb 9.8 L 10.0 L (10.1-14.3) gm/dl Hct (30.3-42.9) % MCH (28-32) pg RDW 17.8 H 16.5 H (13.2-15.2) % Lymph % (Auto) 50.0 H 35.9 H (13.4-35.0) % APTT (24.2-36.6) Sec. Fibrinogen 506 H (211-480) mg/dl Heparin Anti-Xa Level < 0.10 L (0.3-0.7) U.I./ml Chloride (98-107) mmol/L Carbon Dioxide (22-30) mmol/L Calcium (8.4-10.2) mg/dL 09/30/16 Range/Units 09:48 RBC (3.65-5.03) M/mm3 Hgb (10.1-14.3) gm/dl Hct (30.3-42.9) % MCH (28-32) pg RDW (13.2-15.2) % Lymph % (Auto) (13.4-35.0) % APTT (24.2-36.6) Sec. Fibrinogen 538 H (211-480) mg/dl Heparin Anti-Xa Level < 0.10 L (0.3-0.7) U.I./ml Chloride (98-107) mmol/L Carbon Dioxide (22-30) mmol/L Calcium (8.4-10.2) mg/dL
[2016-09-30] MEDS: HEPARIN/ 0.45% NACL-25,000 UNIT/500 ML 25,000 UNIT/500 ML BAG IV SCH (13:35)
[2016-09-30] MEDS: PAXIL PO SCH (14:44)
[2016-09-30] MEDS: PROTONIX PO SCH (14:44)
[2016-09-30] MEDS: NEURONTIN PO SCH ×2 (14:44→21:25)
[2016-09-30] MEDS: MOBIC PO SCH (14:44)
[2016-09-30] MEDS: VIMPAT PO SCH ×2 (14:44→21:25)
[2016-09-30] MEDS: VALTREX PO SCH (14:45)
[2016-09-30] MEDS: DETROL LA PO SCH (14:45)
--- NOTE | 2016-09-30 19:27 | Consultation ---
History of Present Illness - [facility] Consult date: 09/30/16 Consult reason: other History of present illness: 56-year-old female with recent left total knee replacement performed on 2016, at [facility] who has been essentially immobile since surgery presents to the hospital with worsening dyspnea on exertion and decrease exercise tolerance. Per chart, patient had PE in 2014 and was anticoagulated for at least one year. Unsure of further follow up. She was currently not on anticoagulation prior to surgery at [facility]. Patient was discharge on lovenox, but per report missed a few doses. CT scan here shows bilateral clots to PA's with saddle embolus. Vascular surgery initiated EKOS. Orthopedics assaulted regarding possible hemarthrosis to the left knee Past History Past Medical History: DVT, GERD, hypertension, pulmonary embolism Past Surgical History: total knee replacement, Other Social history: single, smoking. denies: alcohol abuse, prescription drug abuse , IV drug use Family history: diabetes, hypertension Medications and Allergies Allergies Allergy/AdvReac Type Severity Reaction Status Date / Time ibuprofen Allergy Nausea Verified 09/29/16 12:14 metronidazole [From Flagyl] Allergy Nausea Verified 09/29/16 12:14 sulfamethoxazole Allergy Nausea Verified 09/29/16 12:14 [From Bactrim] trimethoprim [From Bactrim] Allergy Nausea Verified 09/29/16 12:14 vancomycin Allergy Itching Verified 09/29/16 12:14 Home Medications Medication Instructions Recorded Confirmed Last Taken Type Meloxicam [Meloxicam] 15 mg PO QDAY 09/04/13 09/29/16 09/28/16 History Fluticasone [Flonase] 1 spray NS QDAY 08/12/14 09/29/16 09/10/14 History 1 Esomeprazole Magnesium [NexIUM] 40 mg PO QDAY 09/29/16 09/29/16 09/28/16 History Fluticasone [Flonase] 1 spray NS QDAY 09/29/16 09/29/16 09/28/16 History Gabapentin [Neurontin] 800 mg PO Q8H 09/29/16 09/29/16 09/28/16 History Lacosamide [Vimpat] 100 mg PO Q12HR 09/29/16 09/29/16 09/28/16 History Levocetirizine Dihydrochloride 5 mg PO DAILY 09/29/16 09/29/16 09/28/16 History [Xyzal] Paroxetine HCl [Paxil] 30 mg PO DAILY 09/29/16 09/29/16 09/28/16 History Quetiapine Fumarate [SEROquel XR] 600 mg PO QHS 09/29/16 09/29/16 09/28/16 History Simvastatin [Zocor TAB] 20 mg PO QHS 09/29/16 09/29/16 09/28/16 History Tolterodine Tartrate [Tolterodine 4 mg PO DAILY 09/29/16 09/29/16 09/28/16 History Tartrate ER] oxyCODONE /ACETAMINOPHEN [Percocet 1 tab PO Q6HR PRN 09/29/16 09/29/16 09/28/16 History 5/325] valACYclovir [Valtrex] 500 mg PO DAILY 09/29/16 09/29/16 09/28/16 History Active Meds: Active Medications Acetaminophen/Hydrocodone Bitart ([place] 5/325) 2 each PO Q6H PRN PRN Reason: Pain, Moderate (4-6) Last Admin: 09/29/16 20:37 Dose: 2 each Al Hydrox/Mg Hydrox/Simethicone (Alum-Mag Hydrox-Simeth [id number]/5ml) 30 ml PO Q4H PRN PRN Reason: Indigestion Albuterol (Proventil) 2.5 mg IH Q4HRT PRN PRN Reason: Shortness Of Breath Bisacodyl (Dulcolax) 10 mg [place] QDAY PRN PRN Reason: constipation unrelieved by MOM Gabapentin (Neurontin) 800 mg PO Q8HR ZOHAIB Last Admin: 09/30/16 14:44 Dose: 800 mg Heparin Sodium/Sodium Chloride (Heparin/ 0.45% Nacl-25,000 Unit/500 Ml) 25,000 unit in 500 mls @ 24 mls/hr IV TITR ZOHAIB; 1,200 UNITS/HR PRN Reason: Protocol Last Admin: 09/30/16 13:35 Dose: 1,200 units/hr, 24 mls/hr Lacosamide (Vimpat) 100 mg PO Q12HR ZOHAIB Last Admin: 09/30/16 14:44 Dose: 100 mg Magnesium Hydroxide (Milk Of Magnesia) 30 ml PO Q4H PRN PRN Reason: Constipation Meloxicam (Mobic) 15 mg PO QDAY [facility] Last Admin: 09/30/16 14:44 Dose: 15 mg Miscellaneous Medication (Levocetirizine Dihydrochloride [Xyzal]) 5 mg PO DAILY [facility] Miscellaneous Medication (Quetiapine Fumarate [Seroquel Xr]) 600 mg PO QHS [facility] Morphine Sulfate (Morphine) 2 mg IV Q4H PRN PRN Reason: Pain, Moderate (4-6) Last Admin: 09/29/16 22:08 Dose: 2 mg Morphine Sulfate (Morphine) 4 mg IV Q4H PRN PRN Reason: Pain , Severe (7-10) Last Admin: 09/30/16 18:17 Dose: 4 mg Nicotine (Habitrol) 14 mg TD QDAY [facility] Ondansetron HCl (Zofran) 4 mg IV Q8H PRN PRN Reason: Nausea And Vomiting Oxycodone/Acetaminophen (Percocet 5/325) 1 tab PO Q6H PRN PRN Reason: Pain, Moderate (4-6) Pantoprazole Sodium (Protonix) 40 mg PO DAILY [facility] Last Admin: 09/30/16 14:44 Dose: 40 mg Paroxetine HCl (Paxil) 30 mg PO DAILY [facility] Last Admin: 09/30/16 14:44 Dose: 30 mg Simvastatin (Zocor) 20 mg PO QHS [facility] Last Admin: 09/29/16 22:10 Dose: 20 mg Tolterodine Tartrate (Detrol La) 4 mg PO DAILY [facility] Last Admin: 09/30/16 14:45 Dose: 4 mg Valacyclovir HCl (Valtrex) 500 mg PO DAILY [facility] Last Admin: 09/30/16 14:45 Dose: 500 mg Physical Examination - Physical exam Narrative exam: Physical examination the left knee there were metallic erlin still in place there's no drainage no erythema active range of motion is from 0-60 flexion whena 1-2+ joint effusion Assessment and Plan Assessment - status post left total knee replacement doing well from orthopedic standpoint she does not require aspiration Plan- can remove erlin on Sunday also patient may begin physical therapy for range of motion and strengthening exercises of the left lower extremity
[2016-09-30] MEDS: PERCOCET 5/325 PO PRN (21:24)
[2016-09-30] MEDS: ZOCOR PO SCH (21:25)
[2016-10-01 00:12] LABS: Hematocrit 31.6 % (30.3-42.9); Hemoglobin 10.1 gm/dl (10.1-14.3)
[2016-10-01 00:30] LABS: INR 1.12 (0.87-1.13)
[2016-10-01 00:33] LABS: Partial Thromboplastin Time 91.2 Sec. (24.2-36.6)
[2016-10-01] MEDS: PERCOCET 5/325 PO PRN ×2 (05:35→14:08)
[2016-10-01] MEDS: NEURONTIN PO SCH ×3 (05:36→21:02)
[2016-10-01 07:06] LABS: Basophils % (Auto) 0.6 % (0.0-1.8); Eosinophils % (Auto) 2.7 % (0.0-4.3); Hematocrit 32.8 % (30.3-42.9); Hemoglobin 10.6 gm/dl (10.1-14.3); Mean Corpuscular HGB Conc 32 % (30-34); Mean Corpuscular Hemoglobin 28 pg (28-32); Mean Corpuscular Volume 87 fl (79-97); Platelet Count 214 K/mm3 (140-440); Red Blood Count 3.75 M/mm3 (3.65-5.03); Red Cell Distribution Width 16.2 % (13.2-15.2); White Blood Count 7.3 K/mm3 (4.5-11.0)
[2016-10-01 07:16] LABS: Anion Gap 21 mmol/L; BUN/Creatinine Ratio 12.85; Blood Urea Nitrogen 9 mg/dL (7-17); Calcium 8.5 mg/dL (8.4-10.2); Carbon Dioxide 17 mmol/L (22-30); Chloride 108.8 mmol/L (98-107); Glucose 96 mg/dL (65-100); Potassium 3.6 mmol/L (3.6-5.0); Sodium 143 mmol/L (137-145)
[2016-10-01] MEDS: VIMPAT PO SCH ×2 (09:10→21:02)
[2016-10-01] MEDS: NORCO 5/325 PO PRN ×2 (09:10→19:31)
[2016-10-01] MEDS: PAXIL PO SCH (09:11)
[2016-10-01] MEDS: VALTREX PO SCH (09:11)
[2016-10-01] MEDS: DETROL LA PO SCH (09:11)
[2016-10-01] MEDS: PROTONIX PO SCH (09:11)
[2016-10-01] MEDS: MOBIC PO SCH (09:11)
[2016-10-01] MEDS: HABITROL TD SCH (09:11)
[2016-10-01] MEDS: HEPARIN/ 0.45% NACL-25,000 UNIT/500 ML 25,000 UNIT/500 ML BAG IV SCH (13:58)
--- NOTE | 2016-10-01 14:54 | Progress Note ---
Assessment and Plan 56 y/o female with acute pulmonary emboli status post EKOS therapy. 1. Transfer orders in, no beds. Will sign off once out of unit. Subjective Date of service: 10/01/16 Interval history: No acute events overnight. Stable on room air. Objective Vital Signs - 12hr 10/01/16 10/01/16 10/01/16 03:00 03:40 04:00 Temperature Pulse Rate 85 85 Respiratory 11 L 23 12 Rate Blood Pressure 142/105 142/102 O2 Sat by Pulse 97 98 95 Oximetry 10/01/16 10/01/16 10/01/16 04:09 05:04 05:35 Temperature 98.7 F Pulse Rate Respiratory 18 18 Rate Blood Pressure 142/102 O2 Sat by Pulse 97 Oximetry 10/01/16 10/01/16 10/01/16 06:00 07:00 08:00 Temperature 97.9 F Pulse Rate 83 82 79 Respiratory 11 L 12 18 Rate Blood Pressure 154/103 164/112 159/102 O2 Sat by Pulse 98 94 99 Oximetry 10/01/16 10/01/16 10/01/16 09:00 10:00 11:00 Temperature Pulse Rate 97 H 90 89 Respiratory 11 L 16 15 Rate Blood Pressure 145/101 138/99 143/96 O2 Sat by Pulse 97 97 Oximetry 10/01/16 10/01/16 12:00 13:00 Temperature 97.9 F Pulse Rate 89 91 H Respiratory 18 19 Rate Blood Pressure 134/89 142/94 O2 Sat by Pulse 94 99 Oximetry Constitutional: no acute distress, asleep, other (lying flat with good O2 sats) ENT: oropharynx moist Neck: supple Effort: normal Ascultation: Bilateral: diminished breath sounds Percussion: Bilateral: not dull Cardiovascular: regular rate and rhythm Gastrointestinal: normoactive bowel sounds, soft CBC and BMP: 10/01/16 05:34 10/01/16 05:34 ABG, PT/INR, D-dimer: ABG POC ABG pH 7.391 (7.35-7.45) 09/29/16 13:24 POC ABG pCO2 25.4 (35-45) L 09/29/16 13:24 POC ABG pO2 71 (80-105) L 09/29/16 13:24 POC ABG HCO3 15.4 09/29/16 13:24 POC ABG Total CO2 16 06/23/17 13:24 POC ABG O2 Sat 94 09/29/16 13:24 PT/INR, D-dimer PT 15.0 Sec. (12.2-14.9) H 09/30/16 23:34 INR 1.12 (0.87-1.13) 09/30/16 23:34 Abnormal lab findings: Abnormal Labs 09/29/16 09/29/16 09/29/16 17:14 17:14 17:14 RBC 3.25 L Hgb 9.0 L Hct 29.1 L MCH RDW 17.0 H Lymph % (Auto) 44.9 H PT APTT 52.8 H Fibrinogen 557 H Heparin Anti-Xa Level Chloride 107.6 H Carbon Dioxide Calcium 7.5 L 09/29/16 09/29/16 09/30/16 21:58 21:58 04:37 RBC 3.55 L Hgb 9.7 L Hct MCH 27 L RDW 16.3 H Lymph % (Auto) 48.6 H PT APTT Fibrinogen 550 H Heparin Anti-Xa Level Chloride 112.5 H Carbon Dioxide 11 L D Calcium 8.2 L 09/30/16 09/30/16 09/30/16 04:37 04:37 09:48 RBC 3.55 L 3.58 L Hgb 9.8 L 10.0 L Hct MCH RDW 17.8 H 16.5 H Lymph % (Auto) 50.0 H 35.9 H PT APTT Fibrinogen 506 H Heparin Anti-Xa Level < 0.10 L Chloride Carbon Dioxide Calcium 09/30/16 09/30/16 09/30/16 09:48 20:00 23:34 RBC Hgb Hct MCH RDW Lymph % (Auto) PT 15.0 H APTT 91.2 H* Fibrinogen 538 H Heparin Anti-Xa Level < 0.10 L 0.15 L Chloride Carbon Dioxide Calcium 10/01/16 10/01/16 10/01/16 05:34 05:34 11:46 RBC Hgb Hct MCH RDW 16.2 H Lymph % (Auto) 42.0 H PT APTT Fibrinogen Heparin Anti-Xa Level 0.26 L Chloride 108.8 H Carbon Dioxide 17 L Calcium
--- NOTE | 2016-10-01 15:12 | Progress Note ---
Assessment and Plan 56-year-old female with multiple medical problems who previously had a sub- massive pulmonary emboli and never regained her prior lung function, and on CT has findings compatible with chronic pulmonary hypertension with positive biomarkers suggestive of superimposed right heart strain with minimal ability to ambulate without hypoxia. Had MEDICAL RECEPTIONIST shunt placed either 2 years ago or 6 months ago (story seems to change) and left TKA 10 days ago. Used low dose thrombolytics. Tolerated without issue. EKOS catheters removed at bedside. Patient tolerated procedure without issue. Left knee feels without any obvious signs of hemarthrosis. A&O x 3 without any signs of ICH. H&H stable. Can be converted from IV anticoagulation to oral anticoagulation. Consider NOACs. Recommend lifelong anticoagulation given 2 submassive pulmonary embolisms. Recommend hematology consult to follow patient for lifelong anticoagulation. Subjective Date of service: 10/01/16 Interval history: Continue to do well. A&O x3. Feels better. Breathing better. No groin hematoma. Left knee feels "better than yesterday". No bruising around left knee. No ecchymosis. Wants to go home. Last PE patient was hospitalized for 3 weeks. Told Carlyn she needs to be patient. Objective - Constitutional Vitals: Vital Signs - 12hr 10/01/16 10/01/16 10/01/16 03:40 04:00 04:09 Temperature 98.7 F Pulse Rate 85 Respiratory 23 12 Rate Blood Pressure 142/102 O2 Sat by Pulse 98 95 Oximetry 10/01/16 10/01/16 10/01/16 05:04 05:35 06:00 Temperature Pulse Rate 83 Respiratory 18 18 11 L Rate Blood Pressure 142/102 154/103 O2 Sat by Pulse 97 98 Oximetry 10/01/16 10/01/16 10/01/16 07:00 08:00 09:00 Temperature 97.9 F Pulse Rate 82 79 97 H Respiratory 12 18 11 L Rate Blood Pressure 164/112 159/102 145/101 O2 Sat by Pulse 94 99 Oximetry 10/01/16 10/01/16 10/01/16 10:00 11:00 12:00 Temperature 97.9 F Pulse Rate 90 89 89 Respiratory 16 15 18 Rate Blood Pressure 138/99 143/96 134/89 O2 Sat by Pulse 97 97 94 Oximetry 10/01/16 13:00 Temperature Pulse Rate 91 H Respiratory 19 Rate Blood Pressure 142/94 O2 Sat by Pulse 99 Oximetry General appearance: Present: no acute distress - EENT Eyes: EOM intact ENT: hearing intact - Respiratory Respiratory effort: normal Extremities: normal temperature, normal color, abnormal (no groin hematoma) - Psychiatric Psychiatric: appropriate mood/affect, cooperative - Labs CBC & Chem 7: 10/01/16 05:34 10/01/16 05:34 Labs: Abnormal lab results 09/30/16 09/30/16 10/01/16 Range/Units 20:00 23:34 05:34 RDW 16.2 H (13.2-15.2) % Lymph % (Auto) 42.0 H (13.4-35.0) % PT 15.0 H (12.2-14.9) Sec. APTT 91.2 H* (24.2-36.6) Sec. Heparin Anti-Xa Level 0.15 L (0.3-0.7) U.I./ml Chloride (98-107) mmol/L Carbon Dioxide (22-30) mmol/L 10/01/16 10/01/16 Range/Units 05:34 11:46 RDW (13.2-15.2) % Lymph % (Auto) (13.4-35.0) % PT (12.2-14.9) Sec. APTT (24.2-36.6) Sec. Heparin Anti-Xa Level 0.26 L (0.3-0.7) U.I./ml Chloride 108.8 H (98-107) mmol/L Carbon Dioxide 17 L (22-30) mmol/L
--- NOTE | 2016-10-01 17:16 | Progress Note ---
Assessment and Plan 1)Submassive pulmonary emboli with right heart strain. Patient status post EKOS. Vascular surgery following. Continue anticoagulation. 2)Acute hypoxic respiratory failure- resolved. 3)Pulmonary hypertension-stable 4) S/p TKR. Observe for hemarthrosis given the anticoagulation/thrombolytic therapy/EKOS and consult orthopedic surgery as needed. 5) Pateint maybe discharged on Eliquis 5 mg po bid b/c of TKA. Eliquis started today after consulting Dr Villa.Low dose Eliquis b/c of TKA so that Hemartrosis doesn't happen. Subjective Date of service: 10/01/16 Principal diagnosis: S/p Acute PE Interval history: Very comfortable in bed.No SOB 56-year-old female with multiple medical problems who previously had a sub- massive pulmonary emboli and never regained her prior lung function, and on CT has findings compatible with chronic pulmonary hypertension with positive biomarkers suggestive of superimposed right heart strain with minimal ability to ambulate without hypoxia. Had WEB PUBLISHER shunt placed few months ago and left TKA 10 days ago. Submassive pulmonary emboli with right heart strain. Patient status post EKOS. Vascular surgery following. Continue anticoagulation. Objective - Exam Narrative Exam: Comfortable.No SOB - Constitutional Vitals: Vital Signs - 12hr 10/01/16 10/01/16 10/01/16 05:35 06:00 07:00 Temperature Pulse Rate 83 82 Respiratory 18 11 L 12 Rate Blood Pressure 154/103 164/112 O2 Sat by Pulse 98 94 Oximetry 10/01/16 10/01/16 10/01/16 08:00 09:00 10:00 Temperature 97.9 F Pulse Rate 79 97 H 90 Respiratory 18 11 L 16 Rate Blood Pressure 159/102 145/101 138/99 O2 Sat by Pulse 99 97 Oximetry 10/01/16 10/01/16 10/01/16 11:00 12:00 13:00 Temperature 97.9 F Pulse Rate 89 89 91 H Respiratory 15 18 19 Rate Blood Pressure 143/96 134/89 142/94 O2 Sat by Pulse 97 94 99 Oximetry 10/01/16 10/01/16 10/01/16 14:00 15:00 16:00 Temperature 97.3 F L Pulse Rate 92 H 86 84 Respiratory 16 19 16 Rate Blood Pressure 149/103 151/97 150/102 O2 Sat by Pulse 97 96 96 Oximetry General appearance: Present: no acute distress, well-nourished - EENT Eyes: PERRL, EOM intact ENT: hearing intact, clear oral mucosa Ears: bilateral: normal - Neck Neck: supple, normal ROM - Respiratory Respiratory effort: normal Respiratory: bilateral: CTA - Breasts Breasts: normal - Cardiovascular Rhythm: regular Heart Sounds: Present: S1 & S2. Absent: gallop, rub Extremities: pulses intact, No edema, normal color, Full ROM - Gastrointestinal General gastrointestinal: Present: soft, non-tender, non-distended, normal bowel sounds - Genitourinary Female genitourinary: normal - Integumentary Integumentary: clear, warm, dry - Musculoskeletal Musculoskeletal: 1, strength equal bilaterally - Neurologic Neurologic: moves all extremities - Psychiatric Psychiatric: memory intact, appropriate mood/affect, intact judgment & insight - Labs CBC & Chem 7: 10/01/16 05:34 10/01/16 05:34 Labs: Abnormal lab results 09/30/16 09/30/16 10/01/16 Range/Units 20:00 23:34 05:34 RDW 16.2 H (13.2-15.2) % Lymph % (Auto) 42.0 H (13.4-35.0) % PT 15.0 H (12.2-14.9) Sec. APTT 91.2 H* (24.2-36.6) Sec. Heparin Anti-Xa Level 0.15 L (0.3-0.7) U.I./ml Chloride (98-107) mmol/L Carbon Dioxide (22-30) mmol/L 10/01/16 10/01/16 Range/Units 05:34 11:46 RDW (13.2-15.2) % Lymph % (Auto) (13.4-35.0) % PT (12.2-14.9) Sec. APTT (24.2-36.6) Sec. Heparin Anti-Xa Level 0.26 L (0.3-0.7) U.I./ml Chloride 108.8 H (98-107) mmol/L Carbon Dioxide 17 L (22-30) mmol/L
[2016-10-01] MEDS: ZOCOR PO SCH (21:02)
[2016-10-01] MEDS: ELIQUIS PO SCH (21:02)
[2016-10-02] MEDS: NORCO 5/325 PO PRN ×2 (03:59→15:49)
[2016-10-02] MEDS: NEURONTIN PO SCH ×2 (05:24→14:09)
[2016-10-02 06:42] LABS: Anion Gap 19 mmol/L; BUN/Creatinine Ratio 8.75; Blood Urea Nitrogen 7 mg/dL (7-17); Calcium 8.7 mg/dL (8.4-10.2); Carbon Dioxide 19 mmol/L (22-30); Chloride 110.6 mmol/L (98-107); Glucose 95 mg/dL (65-100); Potassium 3.6 mmol/L (3.6-5.0); Sodium 145 mmol/L (137-145)
--- NOTE | 2016-10-02 07:20 | Vascular Lab Report ---
LOWER EXTREMITY VENOUS DUPLEX: REASON FOR EXAM: Swelling of the lower extremities. COMMENTS ON THE RIGHT: All veins visualized are freely compressible without evidence of internal echogenicity. Flow is spontaneous and phasic throughout. COMMENTS ON THE LEFT: All veins visualized are freely compressible without evidence of internal echogenicity. Flow is spontaneous and phasic throughout. IMPRESSION: No evidence of acute or chronic deep venous thrombosis in either lower extremity.
[2016-10-02] MEDS: PAXIL PO SCH (12:21)
[2016-10-02] MEDS: PROTONIX PO SCH (12:22)
[2016-10-02] MEDS: VIMPAT PO SCH (12:22)
[2016-10-02] MEDS: ELIQUIS PO SCH (12:22)
[2016-10-02] MEDS: PERCOCET 5/325 PO PRN (12:32)
[2016-10-02] MEDS ORDERED: LEVOCETIRIZINE PO SCH (14:00)
[2016-10-02 14:04] VITALS: BP 158/81
--- NOTE | 2016-10-02 15:59 | Discharge Summary ---
Providers - Providers Date of Admission: 09/29/16 16:35 Date of discharge: 10/02/16 Attending physician: DANIEL ARGUETA 10/01/16 17:24 Consult to Physician [CONS] Routine Consulting Provider: KEESHA VAZQUEZ Reason For Exam: Rec PE Primary care physician: MARKETING ASSOCIATE Hospitalization Condition: Good Hospital course: See D/c summary in reports-dictated Disposition: [id number]/[id number] HOME [facility] Time spent for discharge: 32 min Core Measure Documentation - Palliative Care Palliative Care/ Comfort Measures: Not Applicable - Core Measures Any of the following diagnoses?: none Exam - Constitutional Vitals: Temp Pulse Resp BP Pulse Ox 98.2 F 65 16 158/81 98 10/02/16 14:02 10/02/16 14:02 10/02/16 14:02 10/02/16 14:02 10/02/16 14:02 Plan Weight Bearing Status: Weight Bear as Tolerated Diet: low salt Special Instructions: physical therapy Durable Medical Equipment Needed Upon Discharge: Walker-Standard Follow up with: CRYSTAL ZHANG MD [Primary Care Provider] - 3-5 Days ROSALINE SANDOVAL MD [Staff Physician] - 7 Days
[2016-10-02] MEDS: VALTREX PO SCH (19:02)
[2016-10-02] MEDS: HABITROL TD SCH (19:02)
[2016-10-02] MEDS: MOBIC PO SCH (19:02)
[2016-10-02] MEDS: DETROL LA PO SCH (19:02)
[2016-10-02] MEDS ORDERED: QUETIAPINE FUMARATE PO SCH (22:00)
== END 2016-10-02 19:31 | disposition home health service (06) | DRG 189 ==
LOC: ED 12:06 → CC1 16:35 → 4A 10-01 17:14
PROVIDERS: ADMIT Internal Medicine; ATTEND Internal Medicine
PROC: 4A033R1 Measurement of Arterial Saturation, Peripheral, Percutaneous Approach (ICD-10-PCS; principal; 2016-09-29)
PROC: 02HR33Z Insertion of Infusion Device into Left Pulmonary Artery, Percutaneous Approach (ICD-10-PCS; 2016-09-29)
PROC: 02HQ33Z Insertion of Infusion Device into Right Pulmonary Artery, Percutaneous Approach (ICD-10-PCS; 2016-09-29)
PROC: 3E05317 Introduction of Other Thrombolytic into Peripheral Artery, Percutaneous Approach (ICD-10-PCS; 2016-09-29)
DX: J96.01 Acute respiratory failure with hypoxia (principal); I26.99 Other pulmonary embolism without acute cor pulmonale; I11.0 Hypertensive heart disease with heart failure; I27.2 Other secondary pulmonary hypertension; I50.9 Heart failure, unspecified; J44.9 Chronic obstructive pulmonary disease, unspecified; K21.9 Gastro-esophageal reflux disease without esophagitis; F17.200 Nicotine dependence, unspecified, uncomplicated; Z83.3 Family history of diabetes mellitus; Z82.49 Family history of ischemic heart disease and other diseases of the circulatory system; Z88.8 Allergy status to other drugs, medicaments and biological substances; Z96.652 Presence of left artificial knee joint
CPT/HCPCS: 36415; 37212; 71020; 71275; 80048; 80061; 82803; 82962; 83880; 84484; 85014; 85018; 85025; 85049; 85384; 85520; 85610; 85730; 86850; 86900; 86901; 93005; 93010; 93970; 99406; C1757; C1769; C1894; J0690; J1644; J2250; J2270; J2997; J3010; J7030; J7050; Q9967

== ENCOUNTER 2017-02-21 15:30 | Outpatient (CLI) | payer MEDICARE ==
--- NOTE | 2017-02-22 07:47 | XRay Report ---
Single AP standing view of right and left knee: History: Pain in knees. Findings: There is total left knee replacement noted. The femoral and tibial compliments is anatomic alignment. There is minimal narrowing of the medial and lateral compartment knee joint. More pronounced in the lateral compartment. Normal articular surfaces. No soft tissue calcification. Impression: Findings as detailed above.
== END 2017-02-21 15:31 | disposition home or self-care (01) ==
LOC: XRAY 15:30
PROVIDERS: ATTEND Orthopaedic Surgery
DX: M25.562 Pain in left knee (principal); M25.561 Pain in right knee; Z96.652 Presence of left artificial knee joint
CPT/HCPCS: 73565

== ENCOUNTER 2017-04-18 17:23 | Inpatient (IN) | payer MEDICARE ==
[2017-04-18] MEDS ORDERED: AMBIEN PO PRN (21:22)
[2017-04-18] MEDS ORDERED: DULCOLAX PR PRN (21:22)
[2017-04-18] MEDS ORDERED: MORPHINE IV PRN (21:22)
[2017-04-18] MEDS ORDERED: MILK OF MAGNESIA PO PRN (21:22)
[2017-04-18] MEDS ORDERED: TYLENOL PO PRN (21:22)
[2017-04-18] MEDS ORDERED: PERCOCET 5/325 PO PRN (21:22)
[2017-04-18] MEDS ORDERED: ZOFRAN IV PRN (21:22)
--- NOTE | 2017-04-18 21:22 | History and Physical Report ---
History of Present Illness Date of examination: 04/18/17 Date of admission: 04/18/17 18:36 Chief complaint: Chief complaint: Passed out around 4:30 AM History of present illness: History of present illness: 56-year-old -[place] female with history of hyperlipidemia arthritis allergy rhinitis and urinary incontinence apparently passed out at 4:30 AM. Patient was trying to get out of and passed out for a few seconds. No seizures. No fever no chills. Patient went to her primary care physician who referred her to [facility] as direct admit. No shortness of breath. Left shoulder pain present. Also left neck pain present. No exacerbating or precipitating factors. Review of System: Constitutional: no fever, no chills, no weight loss Ears, eyes, nose, mouth and throat: no nasal congestion, no nasal discharge, no sinus pressure, no vision change, no red eye. Neck: No neck pain or rigidity. Cardiovascular: No chest pain, no orthopnea, no palpitations, no leg swelling Respiratory: No shortness of breath, no cough, no congestion, no wheezing Gastrointestinal: no abdominal pain, no nausea, no vomiting Genitourinary : urinary incontinence Musculoskeletal: no joint swelling or muscle ache Integumentary: no rash, no pruritis Neurological: no parathesias, no numbness, no tingling syncope present this a.m. Endocrine: no cold or heat intolerance, no polyuria or polydipsia Hematologic/Lymphatic: no easy bruising, no easy bleeding, no gland swelling Allergic/Immunologic: no urticaria, no angioedema. Past History Past Medical History: hyperlipidemia, other (urinary incontinence) Past Surgical History: total knee replacement (left) Social history: smoking (half a pack a day.), full code. denies: lives with family, alcohol abuse Family history: hypertension Medications and Allergies Allergies Allergy/AdvReac Type Severity Reaction Status Date / Time ibuprofen Allergy Nausea Verified 09/29/16 12:14 metronidazole [From Flagyl] Allergy Nausea Verified 09/29/16 12:14 sulfamethoxazole Allergy Nausea Verified 09/29/16 12:14 [From Bactrim] trimethoprim [From Bactrim] Allergy Nausea Verified 09/29/16 12:14 vancomycin Allergy Itching Verified 09/29/16 12:14 Home Medications Medication Instructions Recorded Confirmed Last Taken Type Meloxicam [Meloxicam] 15 mg PO QDAY 09/04/13 09/29/16 09/28/16 History Fluticasone [Flonase] 1 spray NS QDAY 08/12/14 09/29/16 09/10/14 History 1 Esomeprazole Magnesium [NexIUM] 40 mg PO QDAY 09/29/16 09/29/16 09/28/16 History Fluticasone [Flonase] 1 spray NS QDAY 09/29/16 09/29/16 09/28/16 History Gabapentin [Neurontin] 800 mg PO Q8H 09/29/16 09/29/16 09/28/16 History Lacosamide [Vimpat] 100 mg PO Q12HR 09/29/16 09/29/16 09/28/16 History Levocetirizine Dihydrochloride 5 mg PO DAILY 09/29/16 09/29/16 09/28/16 History [Xyzal] Paroxetine HCl [Paxil] 30 mg PO DAILY 09/29/16 09/29/16 09/28/16 History Quetiapine Fumarate [SEROquel XR] 600 mg PO QHS 09/29/16 09/29/16 09/28/16 History Simvastatin [Zocor TAB] 20 mg PO QHS 09/29/16 09/29/16 09/28/16 History Tolterodine Tartrate [Tolterodine 4 mg PO DAILY 09/29/16 09/29/16 09/28/16 History Tartrate ER] oxyCODONE /ACETAMINOPHEN [Percocet 1 tab PO Q6HR PRN 09/29/16 09/29/16 09/28/16 History 5/325] valACYclovir [Valtrex] 500 mg PO DAILY 09/29/16 09/29/16 09/28/16 History Apixaban [Eliquis] 5 mg PO BID #60 tablet 10/02/16 Unknown Rx SUMAtriptan SUCCINATE [Imitrex] 200 mg PO BID 10/02/16 10/02/16 09/28/16 History Exam - Constitutional Vitals: Temp Pulse Resp BP Pulse Ox 98.6 F 91 H 18 101/74 93 04/18/17 20:01 04/18/17 20:01 04/18/17 20:01 04/18/17 20:01 04/18/17 20:01 General appearance: Present: no acute distress, well-nourished - EENT Eyes: Present: PERRL ENT: hearing intact, clear oral mucosa - Neck Neck: Present: supple, normal ROM - Respiratory Respiratory effort: normal Respiratory: bilateral: CTA - Cardiovascular Heart rate: 80 Rhythm: regular (80/m) Heart Sounds: Present: S1 & S2. Absent: rub, click - Extremities Extremities: no ischemia, pulses intact, pulses symmetrical, No edema Peripheral Pulses: within normal limits - Abdominal General gastrointestinal: Present: soft, non-tender, non-distended, normal bowel sounds Female genitourinary: Present: normal - Rectal Rectal Exam: deferred - Integumentary Integumentary: Present: clear, warm, dry - Musculoskeletal Musculoskeletal: gait normal, strength equal bilaterally - Psychiatric Psychiatric: appropriate mood/affect, intact judgment & insight - Neurologic Neurologic: CNII-XII intact, moves all extremities - Allied Health Allied health notes reviewed: nursing, case management Assessment and Plan Advance Directives: Yes (full code) VTE prophylaxis?: Chemical Plan of care discussed with patient/family: Yes - Patient Problems (1) Syncope and collapse Current Visit: Yes Status: Acute Plan to address problem: syncope workup. Ordered Lexiscan carotid duplex scan and echocardiogram. Also serial cardiac enzymes and EKGs. (2) Hyperlipidemia Current Visit: Yes Status: Chronic Qualifiers: Hyperlipidemia type: mixed hyperlipidemia Qualified Code(s): E78.2 - Mixed hyperlipidemia Plan to address problem: patient continued on statins (3) Urinary incontinence Current Visit: Yes Status: Chronic Qualifiers: Urinary Incontinence type: stress incontinence Qualified Code(s): N39.3 - Stress incontinence (female) (male) Plan to address problem: patient is continued on tolterodine (4) DVT prophylaxis Current Visit: No Status: Acute Plan to address problem: on Lovenox 40 mg subcutaneous daily
[2017-04-18] MEDS ORDERED: PRAVACHOL PO SCH (22:00)
[2017-04-18] MEDS ORDERED: NACL 0.9% 1000 ML 1,000 ML IV SCH (22:00)
[2017-04-18] MEDS ORDERED: PEPCID PO SCH (22:00)
[2017-04-18] MEDS: CLARITIN PO SCH (22:45)
[2017-04-18] MEDS: PROTONIX PO SCH (22:45)
[2017-04-18] MEDS: DETROL LA PO SCH (23:15)
[2017-04-18 23:45] LABS: Basophils # (Auto) 0.1 K/mm3 (0.0-0.1); Basophils % (Auto) 1.1 % (0.0-1.8); Eosinophils # (Auto) 0.1 K/mm3 (0.0-0.4); Eosinophils % (Auto) 1.2 % (0.0-4.3); Hematocrit 38.8 % (30.3-42.9); Hemoglobin 12.8 gm/dl (10.1-14.3); Lymphocytes # (Auto) 3.2 K/mm3 (1.2-5.4); Lymphocytes % (Auto) 44.9 % (13.4-35.0); Mean Corpuscular HGB Conc 33 % (30-34); Mean Corpuscular Hemoglobin 29 pg (28-32); Mean Corpuscular Volume 89 fl (79-97); Monocytes # (Auto) 0.5 K/mm3 (0.0-0.8); Monocytes % (Auto) 7.7 % (0.0-7.3); Platelet Count 270 K/mm3 (140-440); Red Blood Count 4.34 M/mm3 (3.65-5.03); Red Cell Distribution Width 16.9 % (13.2-15.2)
[2017-04-19 00:03] LABS: Creatine Kinase MB 1.4 ng/mL (0.0-4.0)
[2017-04-19 00:04] LABS: Alanine Aminotransferase 10 units/L (7-56); Albumin 4.2 g/dL (3.9-5); BUN/Creatinine Ratio 12; Blood Urea Nitrogen 11 mg/dL (7-17); Calcium 9.2 mg/dL (8.4-10.2); Hemolysis Index 6
[2017-04-19] MEDS ORDERED: K-DUR PO ONE ×2 (00:50→16:00)
[2017-04-19 06:37] LABS: Hematocrit 37.4 % (30.3-42.9); Hemoglobin 12.3 gm/dl (10.1-14.3); Mean Corpuscular HGB Conc 33 % (30-34); Mean Corpuscular Hemoglobin 30 pg (28-32); Mean Corpuscular Volume 91 fl (79-97); Platelet Count 246 K/mm3 (140-440); Red Blood Count 4.13 M/mm3 (3.65-5.03); Red Cell Distribution Width 17.3 % (13.2-15.2)
[2017-04-19 06:57] LABS: BUN/Creatinine Ratio 13; Blood Urea Nitrogen 12 mg/dL (7-17); Calcium 8.5 mg/dL (8.4-10.2); Hemolysis Index 4
[2017-04-19 06:58] LABS: Creatine Kinase MB 1.4 ng/mL (0.0-4.0)
[2017-04-19] MEDS ORDERED: K-DUR PO NR (08:30)
[2017-04-19 09:48] LABS: Basophils % (Manual) 0 % (0.0-1.8); RBC Morphology Normal; Total Cells Counted 100
[2017-04-19] MEDS ORDERED: LOVENOX SUB-Q SCH (10:00)
[2017-04-19] MEDS ORDERED: MOBIC PO SCH (10:00)
[2017-04-19] MEDS ORDERED: LEXISCAN IV ONE (11:00)
[2017-04-19 11:01] VITALS: BP 96/57
[2017-04-19 11:33] LABS: Creatine Kinase MB 1.5 ng/mL (0.0-4.0)
[2017-04-19] MEDS ORDERED: PNEUMOVAX 23 IM ONE (12:00)
--- NOTE | 2017-04-19 13:57 | Discharge Summary ---
<TESHATIM - Last Filed: 04/19/17 14:07> Providers - Providers Date of Admission: 04/18/17 18:36 Date of discharge: 04/19/17 Attending physician: RHEA QUEVEDO Primary care physician: JENNIFER CARLISLE Hospitalization Hospital course: Patient is a 56-year-old -Swiss female with past medical history of hyperlipidemia arthritis allergy rhinitis and urinary incontinence who present to the Emergency department for syncope. Patient presented with syncope, ACS was ruled out, stress test normal MPI, echocardiogram with ef of 50-55% negative cardiac enzymes, ECGs shows normal sinus rythm, CXR WNL Carotid doppler unremarkable. Patient syncope pain probably from dehydration. He was treated with IV fluid hydration and antihypertensive medications. Patient is clinically improved. Patient advised to follow-up with her primary care provider. Discharge Diagnosed Syncope and collapse Hyperlipidemia Urinary incontinencen Disposition: TO HOME OR SELFCARE Time spent for discharge: 33 minutes Core Measure Documentation - Palliative Care Palliative Care/ Comfort Measures: Not Applicable - Core Measures Any of the following diagnoses?: none Exam - Constitutional Vitals: Temp Pulse Resp BP Pulse Ox 98.4 F 91 H 18 96/57 98 04/19/17 04:16 04/19/17 10:35 04/19/17 04:16 04/19/17 10:35 04/19/17 04:16 General appearance: Present: no acute distress - EENT Eyes: Present: PERRL ENT: hearing intact - Neck Neck: Present: supple - Respiratory Respiratory effort: normal Respiratory: bilateral: CTA - Cardiovascular Rhythm: regular Heart Sounds: Present: S1 & S2 - Abdominal General gastrointestinal: Present: soft, non-tender Female genitourinary: Present: deferred - Rectal Rectal Exam: deferred - Integumentary Integumentary: Present: clear, warm, dry - Musculoskeletal Musculoskeletal: strength equal bilaterally - Psychiatric Psychiatric: appropriate mood/affect - Neurologic Neurologic: moves all extremities - Allied Health Allied health notes reviewed: nursing Plan Diet: low fat, low cholesterol, low salt Follow up with: JENNIFER CARLISLE MD [Primary Care Provider] - 7 Days <RHEA QUEVEDO - Last Filed: 04/20/17 12:58> Providers - Providers Date of Admission: 04/18/17 18:36 Attending physician: RHEA QUEVEDO Primary care physician: JENNIFER CARLISLE Hospitalization Hospital course: I saw and evaluated the patient on 04/19/17. I agree with the findings and the plan of care as documented in the Nurse Practitioner's~note, with the following corrections and additions. CT head was unremarkable, she will f/u with her PCP in one week. Exam - Constitutional Vitals: Temp Pulse Resp BP Pulse Ox 98.4 F 91 H 18 96/57 98 04/19/17 04:16 04/19/17 10:35 04/19/17 04:16 04/19/17 10:35 04/19/17 04:16
[2017-04-19] MEDS: CLARITIN PO SCH (14:13)
[2017-04-19] MEDS: DETROL LA PO SCH (14:13)
[2017-04-19] MEDS: PROTONIX PO SCH (14:15)
--- NOTE | 2017-04-19 16:24 | Cat Scan Report ---
FINAL REPORT EXAM: CT HEAD/BRAIN WO CON HISTORY: syncope TECHNIQUE: Noncontrast CT axial images of the brain. PRIORS: None. FINDINGS: Right frontal ROOF TRUSS DETAILER shunt catheter tip extends to left lateral ventricle. No parenchymal mass, mass effect, hemorrhage, midline shift or hydrocephalus. No evidence of acute cortical infarct. No abnormal, extra-axial fluid or air collection. Osseous calvarium grossly intact. IMPRESSION: 1. No acute intracranial findings.
--- NOTE | 2017-04-19 20:46 | Treadmill Report ---
NUCLEAR PERFUSION SCAN REFERRING PHYSICIAN: Hospitalist service. PROTOCOL: The patient was brought to the stress lab in a postabsorptive state, given 10 mCi of technetium 99m at rest. The patient underwent rest imaging. The patient underwent Lexiscan stress test. At peak stress, the patient was given 26 mCi of technetium 99m. Shortly thereafter, the patient underwent stress imaging. Raw imaging reveals mild GI artifact. No significant motion artifact. SPECT imaging examined carefully in horizontal long axis, vertical long axis, and short axis views. There is normal homogenous uptake of radioisotope in all reported segments. No evidence of significant fixed or reversible perfusion defects suggestive of prior infarction or ischemia. Gated wall motion was normal systolic thickening, calculated ejection fraction of 73%, no TID. CONCLUSIONS: Normal myocardial perfusion scan without evidence of active ischemia or prior infarction. Normal left ventricular systolic performance without evidence of transient ischemic dilatation or stress-induced segmental wall motion abnormalities. JOB# [id number] FARZANEH/JOANIE
== END 2017-04-19 18:16 | disposition home or self-care (01) | DRG 641 ==
LOC: UNDOADMIN 17:23 → 4A 17:23
PROVIDERS: ADMIT Internal Medicine; ATTEND Internal Medicine
PROC: 3E0234Z Introduction of Serum, Toxoid and Vaccine into Muscle, Percutaneous Approach (ICD-10-PCS; principal; 2017-04-19)
DX: E86.0 Dehydration (principal); R55 Syncope and collapse; E78.5 Hyperlipidemia, unspecified; R32 Unspecified urinary incontinence; M19.90 Unspecified osteoarthritis, unspecified site; J30.9 Allergic rhinitis, unspecified; Z96.652 Presence of left artificial knee joint; F17.200 Nicotine dependence, unspecified, uncomplicated; Z82.49 Family history of ischemic heart disease and other diseases of the circulatory system; Z88.6 Allergy status to analgesic agent; Z88.1 Allergy status to other antibiotic agents; Z88.8 Allergy status to other drugs, medicaments and biological substances; Z88.2 Allergy status to sulfonamides; Z79.899 Other long term (current) drug therapy; Z23 Encounter for immunization
CPT/HCPCS: 36415; 70450; 78452; 80048; 80053; 82550; 82553; 83036; 84484; 85007; 85025; 90732; 93306; 93880; A9270-GY; A9502; J1650; J2785; J7030

== ENCOUNTER 2017-09-25 09:31 | Outpatient (CLI) | payer MEDICARE ==
--- NOTE | 2017-09-25 11:13 | XRay Report ---
LEFT KNEE, 3 views: History: Pain in left knee. Total left knee replacement has been performed. The hardware appears well applied. No evidence for fracture, loosening or infection. There is a 7 mm calcific density in the soft tissues just proximal to the knee which may represent a calcified foreign body in the superior patellar bursa. IMPRESSION: Stable appearance of the left knee prosthesis. Questionable calcific density as described above which is new since 02/11/17.
== END 2017-09-25 09:32 | disposition home or self-care (01) ==
LOC: XRAY 09:31
PROVIDERS: ATTEND Orthopaedic Surgery
DX: M25.562 Pain in left knee (principal); I10 Essential (primary) hypertension; E78.5 Hyperlipidemia, unspecified; J44.9 Chronic obstructive pulmonary disease, unspecified; K21.9 Gastro-esophageal reflux disease without esophagitis; F32.9 Major depressive disorder, single episode, unspecified; Z96.652 Presence of left artificial knee joint; Z82.49 Family history of ischemic heart disease and other diseases of the circulatory system

== ENCOUNTER 2017-09-27 12:05 | Outpatient (CLI) | payer MEDICARE ==
--- NOTE | 2017-09-27 13:10 | XRay Report ---
RIGHT KNEE, 2 views: History: Right knee pain. The bony architecture is intact without evidence of fracture or dislocation. No significant soft tissue abnormality is seen. IMPRESSION: Unremarkable right knee.
== END 2017-09-27 12:06 | disposition home or self-care (01) ==
LOC: XRAY 12:05
PROVIDERS: ATTEND Orthopaedic Surgery
DX: M25.561 Pain in right knee (principal)

== ENCOUNTER 2017-11-27 13:34 | Outpatient (CLI) | payer MEDICARE ==
--- NOTE | 2017-11-27 15:10 | Magnetic Resonance Report ---
MRI LUMBAR SPINE WITHOUT CONTRAST HISTORY: Back pain. TECHNIQUE: axial T1, T2. sagittal T1,T2, STIR. COMPARISON: none. FINDINGS: The conus terminates at L1. No signal abnormality or mass. The cauda equina is within normal limits. No central canal stenosis. Normal height and alignment of the lumbar vertebra. The facet joints are in appropriate relationship. Normal bone marrow signal. No acute fracture or suspicious bone lesion. Mild disc desiccation without narrowing is present at all levels. T11-12: A small left paracentral disc protrusion is identified without mass effect. T12-L1: A small midline disc protrusion is identified without mass effect. L1-2: No significant abnormality. L2-3: No significant abnormality. L3-4: No significant abnormality with the disc. Minimal fluid in the facet joints. L4-5: No significant abnormality with the disc. Minimal fluid in the facet joints. L5-S1: No significant abnormality with the disc. Minimal fluid in the facet joints. IMPRESSION: Small disc protrusions are identified at T11-12 and T12-L1 as described. No mass effect on nerve roots. Mild multilevel lumbar spondylosis. No acute process appreciated.
== END 2017-11-27 13:35 | disposition home or self-care (01) ==
LOC: MRI 13:34
PROVIDERS: ATTEND Anesthesiology
DX: M51.25 Other intervertebral disc displacement, thoracolumbar region (principal); M47.816 Spondylosis without myelopathy or radiculopathy, lumbar region; E78.00 Pure hypercholesterolemia, unspecified; K21.9 Gastro-esophageal reflux disease without esophagitis; M10.9 Gout, unspecified; F32.9 Major depressive disorder, single episode, unspecified; J44.9 Chronic obstructive pulmonary disease, unspecified; Z88.6 Allergy status to analgesic agent; Z88.2 Allergy status to sulfonamides; Z88.1 Allergy status to other antibiotic agents; Z48.812 Encounter for surgical aftercare following surgery on the circulatory system; Z87.891 Personal history of nicotine dependence
CPT/HCPCS: 72148

== ENCOUNTER 2019-07-03 09:24 | Outpatient (CLI) | payer MEDICARE ==
--- NOTE | 2019-07-03 11:21 | Ultrasound Report ---
TRANSABDOMINAL PELVIC AND TRANSVAGINAL ULTRASOUND HISTORY: PELVIC PAIN. Postmenopausal. COMPARISON: None. TECHNIQUE: Routine transabdominal and transvaginal pelvic ultrasound performed. FINDINGS: TRANSABDOMINAL PELVIC ULTRASOUND: Uterus: Not well imaged. Endometrium: Not well imaged. Right Ovary: Not imaged. Left Ovary: Not imaged. Additional findings: Transvaginal exam was performed for better delineation of the endometrium and ov kamlesh. TRANSVAGINAL PELVIC ULTRASOUND: Uterus: Small with normal contour and echogenicity. No masses. Uterus measures 4.5 x 1.2 x 2.4 cm. Endometrium: Normal thickness measuring 1.7 mm. Right Ovary: Normal size, blood flow and appearance measuring 1.3 x 0.7 x 0.9 cm. Left Ovary: Normal size, blood flow and appearance measuring 1.2 x 0.6 x 0.8 cm. Additional findings: No adnexal mass or free fluid. IMPRESSION: 1. Postmenopausal pelvis Signer Name: Osito Cevallos MD Signed: 07/03/2019 11:17 AM Workstation Name: [id number]
== END 2019-07-03 09:25 | disposition home or self-care (01) ==
LOC: US 09:24
PROVIDERS: ATTEND Obstetrics & Gynecology
DX: R10.2 Pelvic and perineal pain (principal)
CPT/HCPCS: 76830; 76856